=== PATIENT | female | born 1975 | race Hispanic/Latino ===

== ENCOUNTER 2021-01-10 09:51 | Emergency (ER) | payer OTHER, SELFPAY ==
[2021-01-10] MEDS ORDERED: ONDANSETRON 4 MG/2 ML VIAL ONE ×2 (10:43→10:44)
[2021-01-10] MEDS ORDERED: MORPHINE 4 MG/ML SYR ONE ×2 (10:43→11:50)
[2021-01-10] MEDS ORDERED: NA CHLORIDE 0.9% 1,000 ML ONE (10:43)
[2021-01-10 11:05] LABS: Urine Blood 2+ (Negative); Urine Glucose Negative (Negative); Urine Protein 2+ (Negative); Urine Specific Gravity >=1.030 (1.005-1.030)
[2021-01-10 11:15] LABS: Absolute Lymphocytes (CBC) 2.8 K/uL (0.7-4.9); Basophils % 0.5 % (0-1.3); Lymphocytes % 25.3 % (15.3-44.8); MPV 6.8 fL (7.6-11.3); RBC Red Blood Cell Count 4.49 M/uL (3.86-4.86)
[2021-01-10 11:31] LABS: ALT/SGPT 40 U/L (12-78); AST/SGOT 21 U/L (15-37); Alkaline Phosphatase 116 U/L (45-117); BUN Blood Urea Nitrogen 11 mg/dL (7-18); Bicarbonate 24 mmol/L (21-32); Bilirubin Direct < 0.1 mg/dL (0-0.2); Bilirubin Total 0.3 mg/dL (0.2-1.0); Glucose Level 165 mg/dL (74-106); Lipase 79 U/L (73-393); Potassium 3.7 mmol/L (3.5-5.1); Protein, Total 9.2 g/dL (6.4-8.2); Sodium Level 139 mmol/L (136-145)
[2021-01-10] MEDS ORDERED: NA CHLORIDE 0.9% 50 ML ONE (11:50)
[2021-01-10] MEDS ORDERED: CEFTRIAXONE 1000 MG/VIAL ONE (11:50)
--- NOTE | 2021-01-10 11:54 | RAD REPORT ---
EXAM DESCRIPTION: CTAbdomen Pelvis W Contrast - 01/10/2021 11:46 am CLINICAL HISTORY: FLANK PAIN COMPARISON: No comparisons TECHNIQUE: CT of the abdomen and pelvis was performed. All CT scans are performed using dose optimization technique as appropriate and may include automated exposure control or mA/KV adjustment according to patient size. FINDINGS: Lower chest: No acute abnormality. Liver: No acute abnormality or suspicious lesions. Biliary: No biliary ductal dilatation. Stomach: No significant focal abnormality. Duodenum: No significant focal abnormality. Pancreas: No significant abnormality. Spleen: No significant abnormality. Adrenal: No suspicious lesions. Kidney/ureter: Mild right-sided hydroureteronephrosis secondary to a 4 mm stone at the right UVJ. Retroperitoneum: No retroperitoneal adenopathy. Vascular: No aneurysm. Bowel: No significant focal abnormality. Normal appendix. Peritoneum: No ascites or free air. Bladder: Grossly unremarkable. Reproductive: No adnexal masses. Bones: No acute fracture. Pars defects at L5 with grade 2 anterolisthesis of L5 on S1 . Other: n/a IMPRESSION: Mild right hydroureteronephrosis secondary to a 4 millimeters stone at the right UVJ .
[2021-01-10 11:57] LABS: Urine Specific Gravity/Preg >1.030 (1.005-1.030)
[2021-01-10 12:16] LABS: Urine Bacteria 20-50 /HPF (<20)
--- NOTE | 2021-01-10 13:23 | EDPHYS ---
Physician Documentation [facility] Name: Olena Nunes Age: 45 yrs Sex: Female : 1975 Arrival Date: 01/10/2021 Time: 09:52 Bed 8 Private MD: ED Physician Amari Patton HPI: 01/10 10:49 This 45 yrs old Female presents to ER via Wheelchair with complaints of pm1 Abdominal Pain, Back Pain, Vomiting. 10:49 The patient complains of pain in the right low back. The pain radiates to the right pm1 lower quadrant. Onset: The symptoms/episode began/occurred last night. Modifying factors: The symptoms are alleviated by nothing. the symptoms are aggravated by nothing. Associated signs and symptoms: Pertinent positives: dysuria, nausea, vomiting, Pertinent negatives: fever. Severity of pain: in the emergency department the pain is actually worse. The patient has not experienced similar symptoms in the past. The patient has not recently seen a physician. 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 - Social history:: Smoking status: Patient denies any tobacco usage or history of. ROS: 10:49 Constitutional: Negative for fever, chills, and weight loss, Cardiovascular: Negative pm1 for chest pain, palpitations, and edema, Respiratory: Negative for shortness of breath, cough, wheezing, and pleuritic chest pain. 10:49 MS/Extremity: Negative for injury and deformity, Skin: Negative for injury, rash, and discoloration, Neuro: Negative for headache, weakness, numbness, tingling, and seizure. 10:49 Abdomen/GI: Positive for abdominal pain, nausea and vomiting, of the right lower quadrant, Negative for diarrhea, constipation. 10:49 Back: Positive for flank pain, on the right. 10:49 : Positive for burning with urination. 10:49 All other systems are negative. Exam: 10:49 Constitutional: This is a well developed, well nourished patient who is awake, alert, pm1 and in no acute distress. Head/Face: Normocephalic, atraumatic. 10:49 MS/ Extremity: Pulses equal, no cyanosis. Neurovascular intact. Full, normal range of motion. 10:49 Cardiovascular: Exam negative for acute changes, Rate: normal, Rhythm: regular, Pulses: no pulse deficits are appreciated. 10:49 Respiratory: Exam negative for acute changes, respiratory distress, shortness of breath. 10:49 Abdomen/GI: Inspection: obese Palpation: abdomen is soft and non-tender, in all quadrants. 10:49 Back: Exam negative for acute changes, CVA tenderness, that is mild, is noted on the right. 10:49 Neuro: Exam negative for acute changes, Orientation: is normal, Mentation: is normal, Motor: is normal, moves all fours, Sensation: is normal, no obvious gross deficits. Vital Signs: 10:35 BP 119 / 63; Pulse 92; Resp 18; Temp 97.6; Pulse Ox 100% on R/A; iw 11:00 BP 95 / 57; Pulse 82; Resp 15; Pulse Ox 96% ; bp 12:00 BP 122 / 60; Pulse 97; Resp 14; Pulse Ox 94% ; bp 12:10 BP 107 / 65; Pulse 92; Resp 16; Pulse Ox 98% on R/A; bp 14:30 BP 117 / 67; Pulse 87; Resp 17; Temp 97.9; Pulse Ox 98% ; bp MDM: 10:34 Patient medically screened. pm1 13:22 Data reviewed: vital signs. Data interpreted: Pulse oximetry: on room air is 98 %. pm1 Interpretation: normal. Counseling: I had a detailed discussion with the patient and/or guardian regarding: the historical points, exam findings, and any diagnostic results supporting the discharge/admit diagnosis, lab results, radiology results, the need for outpatient follow up, a urologist, to return to the emergency department if symptoms worsen or persist or if there are any questions or concerns that arise at home. 13:31 ED course: PMPaware reviewed. pm1 01/10 10:37 Order name: Basic Metabolic Panel; Complete Time: 11:46 pm1 01/10 10:37 Order name: CBC with Diff; Complete Time: 11:46 pm1 01/10 10:37 Order name: Hepatic Function; Complete Time: 11:46 pm1 01/10 10:37 Order name: Lipase; Complete Time: 11:46 pm1 01/10 11:04 Order name: Urine Dipstick-Ancillary; Complete Time: 11:13 EDMS 01/10 11:14 Order name: Urine Microscopic Only; Complete Time: 13:36 pm1 01/10 10:37 Order name: CT Abd/Pelvis - IV Contrast Only; Complete Time: 11:56 pm1 01/10 11:33 Order name: Urine --Ancillary (enter results) em1 01/10 11:34 Order name: Urine --Ancillary; Complete Time: 12:04 EDMS 01/10 12:19 Order name: Urine Culture EDDC 01/10 10:37 Order name: IV Saline Lock; Complete Time: 10:57 pm1 01/10 10:37 Order name: Labs collected and sent; Complete Time: 10:57 pm1 Administered Medications: 10:57 Drug: NS 0.9% 1000 ml Route: IV; Rate: 1000 ml; Site: right antecubital; bp 14:43 Follow up: IV Status: Completed infusion; IV Intake: 1000ml bp 10:57 Drug: Zofran (Ondansetron) 4 mg Route: IVP; Site: right antecubital; bp 14:42 Follow up: Response: Nausea is decreased bp 10:57 Drug: morphine 4 mg Route: IVP; Site: right antecubital; bp 14:42 Follow up: Response: Pain is decreased bp 11:56 Drug: Rocephin (cefTRIAXone) 1 grams Route: IV; Rate: calculated rate; Site: right bp antecubital; 14:42 Follow up: IV Status: Completed infusion; IV Intake: 100ml bp 11:56 Drug: morphine 4 mg Route: IVP; Site: right antecubital; bp 14:42 Follow up: Response: Pain is decreased bp 13:00 Drug: Ketorolac 30 mg Route: IVP; Site: right antecubital; bp 14:42 Follow up: Response: No adverse reaction; Pain is decreased bp 13:00 Drug: Flomax (tamsulosin) 0.4 mg Route: PO; bp 14:42 Follow up: Response: No adverse reaction bp Disposition: 01/11 09:22 Co-signature as Attending Physician, Amari Patton MD I agree with the assessment and nan plan of care. Disposition Summary: 01/10/21 13:22 Discharge Ordered Location: Home pm1 Problem: new pm1 Symptoms: have improved pm1 Condition: Stable pm1 Diagnosis - Calculus of ureter pm1 Followup: pm1 - With: Emergency Department - When: As needed - Reason: Worsening of condition Followup: pm1 - With: Private Physician - When: 2 - 3 days - Reason: Recheck today's complaints, Continuance of care, Re-evaluation by your physician Discharge Instructions: - Discharge Summary Sheet pm1 - Kidney Stones pm1 - Dietary Guidelines to Help Prevent Kidney Stones pm1 Forms: - Medication Reconciliation Form pm1 - Thank You Letter pm1 - Antibiotic Education pm1 - Prescription Opioid Use pm1 Prescriptions: - Flomax 0.4 mg Oral capsule - take 1 capsule by ORAL route once daily 1/2 hour following the same meal each pm1 day; 10 capsule; Refills: 0, Product Selection Permitted - acetaminophen-codeine 300-15 mg Oral tablet - take 2 tablet by ORAL route every 6 hours As needed as needed; 20 tablet; pm1 Refills: 0, Product Selection Permitted - ondansetron 4 mg Oral tablet,disintegrating - place 1 tablet by TRANSLINGUAL route every 8 hours As needed; 12 tablet; pm1 Refills: 0, Product Selection Permitted - Cipro 500 mg Oral Tablet - take 1 tablet by ORAL route every 12 hours for 10 days; 20 tablet; Refills: 0, pm1 Product Selection Permitted Signatures: Dispatcher [employer] Amari Sears MD MD cha Williams, Irene, RN KARLIE iw Billy Diane, YASH TEXT TRANSCRIBER pm1 Isaias Crooks RN RN bp
--- NOTE | 2021-01-10 13:23 | ER ---
Nurse's Notes [facility] Name: Olena Nunes Age: 45 yrs Sex: Female : 1975 Arrival Date: 01/10/2021 Time: 09:52 Bed 8 Private MD: Diagnosis: Calculus of ureter Presentation: 01/10 10:35 Chief complaint: Patient states: right flank pain and abd pain and vomiting since last iw night, worse this morning , has been taking AZO for possible uti. Coronavirus screen: At this time, the client does not indicate any symptoms associated with coronavirus-19. Ebola Screen: Patient negative for fever greater than or equal to 101.5 degrees Fahrenheit, and additional compatible Ebola Virus Disease symptoms Patient denies exposure to infectious person. Patient denies travel to an Ebola-affected area in the 21 days before illness onset. No symptoms or risks identified at this time. Initial Sepsis Screen: Does the patient meet any 2 criteria? No. Patient's initial sepsis screen is negative. Does the patient have a suspected source of infection? No. Patient's initial sepsis screen is negative. Risk Assessment: Do you want to hurt yourself or someone else? Patient reports no desire to harm self or others. Onset of symptoms was January 10, 2021. 10:35 Method Of Arrival: Wheelchair iw 10:35 Acuity: GERSON 3 iw Triage Assessment: 10:45 General: Appears distressed, uncomfortable, obese, Behavior is cooperative, appropriate bp for age, agitated, anxious. Pain: Complains of pain in right flank. EENT: No deficits noted. Neuro: Level of Consciousness is awake, alert, obeys commands, Oriented to Appropriate for age. Cardiovascular: Rhythm is sinus rhythm. Respiratory: No deficits noted. GI: Reports lower abdominal pain, nausea, vomiting. : Reports pain in right flank(s). Derm: No deficits noted. Musculoskeletal: No deficits noted. 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 - Social history:: Smoking status: Patient denies any tobacco usage or history of. Screenin:00 Abuse screen: Denies threats or abuse. Denies injuries from another. Nutritional bp screening: No deficits noted. Tuberculosis screening: No symptoms or risk factors identified. Fall Risk None identified. Assessment: 10:45 General: SEE TRIAGE NOTE. bp 11:56 Reassessment: PT RETURNED FROM CT. bp 13:30 Reassessment: No changes from previously documented assessment. Patient and/or family bp updated on plan of care and expected duration. Pain level reassessed. 14:43 Reassessment: PT D/C HOME AMBULATORY WITH FAMILY, DX WITH RENAL CALCULOUS. bp Vital Signs: 10:35 BP 119 / 63; Pulse 92; Resp 18; Temp 97.6; Pulse Ox 100% on R/A; iw 11:00 BP 95 / 57; Pulse 82; Resp 15; Pulse Ox 96% ; bp 12:00 BP 122 / 60; Pulse 97; Resp 14; Pulse Ox 94% ; bp 12:10 BP 107 / 65; Pulse 92; Resp 16; Pulse Ox 98% on R/A; bp 14:30 BP 117 / 67; Pulse 87; Resp 17; Temp 97.9; Pulse Ox 98% ; bp ED Course: 09:52 Patient arrived in ED. mr 10:34 Billy Diane, FINAL INSPECTOR BALANCE WHEEL is PHCP. pm1 10:34 Amari Patotn MD is Attending Physician. pm1 10:36 Triage completed. iw 10:39 Isaias Crooks, KARLIE is Primary Nurse. bp 10:55 Inserted saline lock: 18 gauge in right antecubital area, using aseptic technique. bp Blood collected. 11:00 Patient has correct armband on for positive identification. Bed in low position. Call bp light in reach. Side rails up X2. Adult w/ patient. 11:46 CT Abd/Pelvis - IV Contrast Only In Process Unspecified. EDMS 14:30 No provider procedures requiring assistance completed. intact, bleeding controlled, No bp redness/swelling at site. Pressure dressing applied. Administered Medications: 10:57 Drug: NS 0.9% 1000 ml Route: IV; Rate: 1000 ml; Site: right antecubital; bp 14:43 Follow up: IV Status: Completed infusion; IV Intake: 1000ml bp 10:57 Drug: Zofran (Ondansetron) 4 mg Route: IVP; Site: right antecubital; bp 14:42 Follow up: Response: Nausea is decreased bp 10:57 Drug: morphine 4 mg Route: IVP; Site: right antecubital; bp 14:42 Follow up: Response: Pain is decreased bp 11:56 Drug: Rocephin (cefTRIAXone) 1 grams Route: IV; Rate: calculated rate; Site: right bp antecubital; 14:42 Follow up: IV Status: Completed infusion; IV Intake: 100ml bp 11:56 Drug: morphine 4 mg Route: IVP; Site: right antecubital; bp 14:42 Follow up: Response: Pain is decreased bp 13:00 Drug: Ketorolac 30 mg Route: IVP; Site: right antecubital; bp 14:42 Follow up: Response: No adverse reaction; Pain is decreased bp 13:00 Drug: Flomax (tamsulosin) 0.4 mg Route: PO; bp 14:42 Follow up: Response: No adverse reaction bp Intake: 14:42 IV: 100ml; Total: 100ml. bp 14:43 IV: 1000ml; Total: 1100ml. bp Outcome: 13:22 Discharge ordered by MD. pm1 14:30 Discharged to home ambulatory, with family. bp 14:30 Condition: stable 14:30 Discharge instructions given to patient, family, Instructed on discharge instructions, follow up and referral plans. medication usage, Demonstrated understanding of instructions, follow-up care, medications, Prescriptions given X 4. 14:45 Patient left the ED. bp Signatures: Dispatcher [employer] ANTHONYTN Rhina Fraire Nelli Inman RN RN iw Billy Diane, YASH FINAL INSPECTOR BALANCE WHEEL pm1 Isaias Crooks RN RN bp Corrections: (The following items were deleted from the chart) 10:37 10:35 Pulse 92bpm; Resp 18bpm; Pulse Ox 100% RA; Temp 97.6F; iw iw 11:24 11:21 Patient has correct armband on for positive identification. Bed in low position. bp Call light in reach. Side rails up X2. Adult w/ patient. bp
[2021-01-10] MEDS ORDERED: TAMSULOSIN 0.4 MG SR CAP ONE (14:31)
[2021-01-10] MEDS ORDERED: KETOROLAC 30 MG/ML INJ ONE (14:31)
[2021-01-10 14:58] VITALS: O2SAT 98
[2021-01-10 15:00] VITALS: BP 117/67; TEMP 97.9
== END 2021-01-10 14:45 | disposition home or self-care (01) ==
LOC: ER 09:51
DX: N20.1 Calculus of ureter (principal)
CPT/HCPCS: 36415; 74177; 80048; 80076; 81003; 81015; 81025; 83690; 85025; 87086; 87088; 96361; 96365; 96366; 96375; 99284; J2405; J7030; Q9967

== ENCOUNTER 2022-10-11 00:29 | Inpatient (IN) | payer SELFPAY ==
--- OUTSIDE RECORDS SUMMARY | 2022-10-11 00:32 | XMS REPORT | Continuity of Care Document ---
:1975 Author Organization [facility] t Address [address] [place] [id number] Care Team Providers Name Role Phone Pcp, Patient Does Not Have A Primary Care Physician [id number] Nnamdi Whiting MD Attending Clinician NNAMDI WHITING Attending Clinician Unavailable Problems Condition Condition Condition Status Onset Resolution Last Treating Co mments Source Name Details Category Date Date Treatment Clinician Date General General Disease Recurre 2013-02 Overview: Uni vers counseling counseling nce 2-14 Formattin ity of and advice and advice 00:00: g of this [place] for for note Medical contracept contracept might be Branch leah leah different management management from the original. ICD10 Diagnosis Term Filler Wiper Utility Obesity Obesity Disease Active 2013-02 Overview: Univ ers 2-14 Formattin ity of 00:00: g of this note Medical might be Branch different from the original. ICD10 Diagnosis Term Filler Wiper Utility Anemia Anemia Disease Active 2013-02 Overview: Univer s 2-14 Formattin ity of 00:00: g of this note Medical might be Branch different from the original. ICD10 Diagnosis Term Filler Wiper Utility Multiparit Multiparit Disease Active 2013-02 U nivers y y 0-15 ity of 00:00: [place] 00 Medical Branch Allergies, Adverse Reactions, Alerts Allergy Allergy Status Severity Reaction(s) Onset Inactive Treating Comm ents Source Name Type Date Date Clinician NO KNOWN Drug Active Univers ALLERGIE Class ity of S [place] [facility] [place] Social History Social Habit Start Date Stop Date Quantity Comments Source Gender identity Universit y [place] [facility] Sexual orientation Univer sity of [facility] Alcohol intake 2022-10-10 2022-10-10 Current University of 00:00:00 00:00:00 non-drinker of [facility] alcohol [place] (finding) History of Social 2022-10-10 2022-10-10 Univers ity of function 00:00:00 00:00:00 [facility] Tobacco use and 2013-01-04 2013-01-04 Smokeless Universit y of exposure 00:00:00 00:00:00 tobacco non-user [facility] dical [place] Sex Ass[birth year] Universit y of 00:00:00 00:00:00 [facility] Smoking Status Start Date Stop Date Source Never smoked tobacco [facility] Medications Ordered Filled Start Stop Current Ordering Indication Dosage Frequency Signature Comments Components Source Medication Medication Date Date Medication? Clinician (SIG) Name Name cefTRIAXone 2022- No 1000mg 1,000 mg, Univers (ROCEPHIN) 10-10 IV ity of 1,000 mg in 06:30: 06:33 Piggyback, [place] NaCl 0.9% 00 :00 ONCE, 1 Medical (NS) 100 mL dose, On [facility] ch MINI-BAG [place] 10/10/22 at 0130, Administer over 30 Minutes, 100 mL
Reas on for Anti-Infec tive: Documented Infection< br>Documen jewell Infection Site: Urine<br&g t;Duration of Therapy: Other (see Comments) iopamidol 2022- No [id number] 100mL 100 mL, Univers (ISOVUE 10-10 Intravenou ity o f 370-500 mL) 06:15: 06:15 s, ONCE, 1 [place] injection 00 :00 dose, On Medica l 100 mL [facility] 10/10/22 at 0115, Routine ketorolac 2022- No 30mg 30 mg, Unive rs (TORADOL) 10-10 Slow IV ity of injection 06:15: 05:12 Push, [place] 30 mg 00 :00 ONCE, 1 Medical dose, On Branch [place] 10/10/22 at 0115, Routine NaCl 0.9% 2023-0 2023- No 1000mL at 999 Uni vers (NS) IV 10-10 mL/hr, ity of infusion 06:00: 06:33 Intravenou [place] 1,000 mL 00 :00 s, ONCE, 1 Medic al dose, On [facility] 10/10/22 at 0100, Routine metoclopram 2022- No 10mg 10 mg, Uni vers debra HCl 10-10 Slow IV ity of (REGLAN) 05:15: 05:12 Push, [place] injection 00 :00 ONCE, 1 Medical 10 mg dose, On [facility] 10/10/22 at 0015, EMY acetaminoph 2022- No 1000mg 1,000 mg, Univers en 10-10 Oral, ity of (TYLENOL) 04:30: 04:43 ONCE, 1 [place] tablet 00 :00 dose, On Medical 1,000 mg Sat [place] 10/09/22 at 2330, EMY cefdinir 0 Yes [id number] 300mg Take 1 U nivers 300 mg - capsule by ity of capsule 00:00: mouth [place] 00 every 12 Medical (twelve) Branch hours. ibuprofen 0 Yes [id number] 800mg Take 1 Univers 800 mg 8-27 tablet by ity of tablet 00:00: mouth [place] 00 every 8 Medical (eight) Branch hours as needed for Temp > 38.5 C or Pain (scale 4-6). ondansetron Yes [id number] 4mg Take 1 Univers (ZOFRAN) 4 - tablet by ity of mg tablet 00:00: mouth [place] 00 every 8 Medical (eight) Branch hours as needed for Nausea and Vomiting (N/V). Condoms Yes [id number] Use as Uni vers Latex 10-15 directed ity of Lubricated 00:00: [place] (KIMONO 00 Medical TEXTURED Branch CONDOMS) Catherine Immunizations Ordered Filled Immunization Date Status Comments Sourc e Immunization Name Name TDAP 2013-10-17 Completed University 00:00:00 [facility] TD, NOS 2006-02-14 Completed [facility] 00:00:00 [facility] Rubella 2002-10-25 Completed [facility] 00:00:00 [facility] Vital Signs Vital Name Observation Time Observation Value Comments Source Systolic blood 2022-10-10 06:32:00 111 mm[Hg] Univer sity of pressure [facility] Diastolic blood 2022-10-10 06:32:00 60 mm[Hg] Unive rsity of pressure [facility] Heart rate 2022-10-10 06:32:00 110 /min [facility] Respiratory rate 2022-10-10 06:32:00 18 /min [facility] Oxygen saturation in 2022-10-10 06:32:00 96 /min [facility] Arterial blood by [facility] Pulse oximetry Branch Body temperature 2022-10-10 06:10:00 37.61 Liat [facility] Body height 2022-10-10 04:11:00 162.6 cm [facility] Body weight 2022-10-10 04:11:00 99.791 kg [facility] BMI 2022-10-10 04:11:00 37.76 kg/m2 [facility] Procedures Procedure Date / Time Performed Performing Clinician [facility] e CT ABDOMEN PELVIS W 2022-10-10 05:25:12 Nnamdi Whiting [facility] CONTRAST [facility] Branch COVID-19 (ID NOW RAPID 2022-10-10 05:09:00 Nnamdi Whiting [facility] TESTING) [facility] NOTICE OF PRIVACY 2022-10-10 04:37:50 Doctor Unassigned, No [facility] PRACTICES Name [facility] CONSENT/REFUSAL FOR 2022-10-10 04:37:27 Doctor Unassigned, No [facility] DIAGNOSIS AND Name [facility] TREATMENT AMYLASE 2022-10-10 04:26:00 Nnamdi Whiting [facility] LIPASE 2022-10-10 04:26:00 Nnamdi Whiting [facility] COMP. METABOLIC PANEL 2022-10-10 04:26:00 Nnamdi Whiting [facility] ([id number]) [facility] CBC WITH DIFF 2022-10-10 04:26:00 Nnamdi Whiting [facility] URINALYSIS 2022-10-10 04:26:00 Nnamdi Whiting [facility] Encounters Start End Encounter Admission Attending Care Care Encounter Source Date/Time Date/Time Type Type Clinicians Facility Department ID 2022-10-09 2022-10-10 Emergency [facility] [id number] Univers 23:15:00 01:45:00 Nnamdi SIMMONS [id number] ity ariana KENT [id number] [facility] [id number] [place] [id number] Branch 2022-10-09 2022-10-10 Emergency X [facility] ERT [id number] Univers 23:15:00 01:45:00 [facility] 2022-09-27 Outpatient SFA SFA [id number] 023 Jose R 13:29:48 13:29:48 0814 [facility] 2022-06-29 2022-06-29 Outpatient SFA SFA [id number] 023 Jose R 08:31:14 08:31:14 0516 [facility] 2022-06-24 2022-06-24 Outpatient SFA SFA [id number] [id number] Jose R 15:09:27 15:09:27 0511 [facility] 2022-06-23 2022-06-23 Outpatient SFA SFA [id number] 023 Jose R 15:04:15 15:04:15 0510 [facility] 2022-03-24 2022-03-24 Outpatient SFA SFA [id number] 023 Jose R 15:29:17 15:29:17 0208 [facility] Results Test Description Test Time Test Comments Results Result Comments Source TSH, THIRD GENERATION 2022-09-28 04:32:11 Test Item Value Reference Range Interpretation Comme nts TSH, THIRD GENERATION (test 2.770 UIU/ML 0.400-4.100 UNLESS OTHERWISE INDICATED, code = 2821) ALL TESTING PER FORMED AT CLINICAL PATHOL [employer], [place] [id number]: Vladimir CARRANZA [id number] [facility] [place] [id number] HEMOGLOBIN [id number] 03:42:19 Test Item Value Reference Range Interpretation Comments HEMOGLOBIN A1c (test 6.9 % 4.2-5.6 H AMERIC AN DIABETES code = 61808) ASSOCIATION IDELINES FOR HGB A1C: PREDIABETES/INC REASED RISK . . . . . . . 5.7 -6.4% DIAGNOSIS OF DI ABETES . . . . . . . . . >=6 .5% WITH CONFIRMATION OR APPROPRIATE SYMPTOMS NOTE: ASSAY MAY BE AFFECTED BY HEMOGLOBINOPATH IES (SICKLE CELL ANEMIA, S- C DISEASE, OTHERS) OR JAXSON FICIALLY LOWERED BY DECR EASED RED CELL SURVIVAL ( HEMOLYTIC ANEMIAS, BLOOD LOSS, ETC.). CONSIDER ALTERN ATE TESTING OR LABORATORY C ONSULTATION. CBC W/AUTO DIFF WITH [id number] 03:31:23 Test Item Value Reference Range Interpretation Comments WBC (test code = 7.8 K/UL 3.5-11.0 1001) RBC (test code = 4.56 M/UL 3.80-5.40 1002) HEMOGLOBIN (test code 11.5 G/DL 11.5-15.5 = 1003) HEMATOCRIT (test code 36.0 % 34.0-45.0 = 1004) MCV (test code = 78.9 fL 80.0-99.0 L 1005) MCH (test code = 25.2 PG 25.0-33.0 1006) MCHC (test code = 31.9 G/DL 31.0-36.0 1007) RDW (test code = 16.8 % 11.5-15.0 H 1038) NEUTROPHILS (test 52.9 % code = 1008) LYMPHOCYTES (test 35.9 % code = 1010) MONOCYTES (test code 6.6 % = 1011) EOSINOPHILS (test 3.9 % code = 1012) BASOPHILS (test code 0.4 % = 1013) IMMATURE GRANULOCYTES 0.3 % (test code = 1036) NUCLEATED RBCS (test 0.0 /100 WBC'S See_Comment [Aut omated code = 1065) message] The sy stem which generated this result transmitted reference range : 0.0. The refere nce range was not u sed to interpret th is result as normal/abnormal . PLATELET COUNT (test 400 K/UL 130-400 code = 1015) ABSOLUTE NEUTROPHILS 4.11 K/UL 1.50-7.50 (test code = 1066) ABSOLUTE LYMPHOCYTES 2.78 K/UL 1.00-4.00 (test code = 1067) ABSOLUTE MONOCYTES 0.51 K/UL 0.20-1.00 (test code = 1068) ABSOLUTE EOSINOPHILS 0.30 K/UL 0.00-0.50 (test code = 1040) ABSOLUTE BASOPHILS 0.03 K/UL 0.00-0.20 (test code = 1069) ABS IMMATURE 0.02 K/UL 0.00-0.10 GRANULOCYTES (test code = 1020) ABS NUCLEATED RBCS 0.00 K/UL 0.00-0.11 (test code = 87948) COMPREHENSIVE METABOLIC [id number] 02:16:54 Test Item Value Reference Range Interpretation Comments GLUCOSE (test code = 127 MG/DL 70-99 H 2216) BUN (test code = 10 MG/DL 6-20 2207) CREATININE (test 0.45 MG/DL 0.60-1.30 L code = 2213) eGFR (2020 CKD-EPI) 119 >60 (test code = 26670) ML/MIN/1.73 CALC BUN/CREAT (test 22 RATIO 6-28 code = 2235) SODIUM (test code = 136 MEQ/L 049-100 6534) POTASSIUM (test code 4.0 MEQ/L 3.5-5.4 = 2227) CHLORIDE (test code 103 MEQ/L 95-107 = 2214) CARBON DIOXIDE (test 26 MEQ/L 19-31 code = 220) CALCIUM (test code = 9.1 MG/DL 8.5-10.5 2208) PROTEIN, TOTAL (test 8.1 G/DL 6.1-8.3 code = 222) ALBUMIN (test code = 3.9 G/DL 3.5-5.2 2200) CALC GLOBULIN (test 4.2 G/DL 1.9-3.7 H code = 2240) CALC A/G RATIO (test 0.9 RATIO 1.0-2.6 L code = 2234) BILIRUBIN, TOTAL 0.2 MG/DL See_Comment [Automated message] (test code = 2206) The syste m which generated this result transmit jewell reference range : <=1.2. The refe rence range was not u sed to interpret th is result as normal/abnormal . ALKALINE PHOSPHATASE 118 U/L 40-120 (test code = 2204) AST (test code = 25 U/L 9-40 2217) ALT (test code = 47 U/L 5-40 H 2218) LIPID [id number] 02:16:54 Test Item Value Reference Range Interpretation Comments CHOLESTEROL (test 160 MG/DL <200 code = 2210) TRIGLYCERIDES (test 125 MG/DL <150 code = 2232) HDL CHOLESTEROL (test 57 MG/DL >39 code = 2220) CALC LDL CHOL (test 80 MG/DL <100 NOTE: C ALCULATED LDL code = 2237) IS BASED ON ALEX-CASTILLO METHOD WHICHINCLUDES ADJUSTABLE TRIGLYCERIDE:VL DL CHOLESTEROL RAT IO.THIS FACTOR VARIES B Y MEASURED TRIGLY CERIDE AND NON-HDLCHOL ESTEROL CONCENTRATIONS WITH INCREASED CALCU LATED LDL SEENIN HIGH ER TRIGLYCERIDE OR LOWER NON-HDL SPECIME NS. FOR MOREINFORMATION , SEE CLIENT ANNOUNCE MENT AT [email or web address] RISK RATIO LDL/HDL 1.40 RATIO <3.22 (test code = 2238) Notes Date/Time Note Provider Source 2022-10-10 Formatting of this note might be differe nt from the original. Fredy Dennis RN [facility] 01:36:30-00:00 Pt discharged home following ERP eval. Given all education and information regarding prescriptions; pain management; and follow up importance. Pt and daughter verbalize understanding. Vss. Alert and ambulatory to pov with daughter, Electronically signed by Fredy Dennis, RN at 0 10/10/2022 1:37 AM CDT 2022-10-09 Formatting of this note might be differe nt from the original. Dhara Dykes RN [facility] 23:08:55-00:00 CC: right upper quadrant rib pain that is severe, fever all day, N/V. She states she also just saw a spot behind her left knee that looks like a boil. Tylenol and motrin today PMHx: none PSH: c-sec MEDS:none LMP: now Awake, alert, oriented, resp reg unlabored, skin warm and dry, color appropriate for race, moves all ext without difficulty, amb with no assist Appears in moderate distress
[2022-10-11 01:39] LABS: Absolute Lymphocytes (CBC) 2.7 K/uL (0.7-4.9); Hematocrit 33.3 % (36.0-45.0); Lymphocytes % 18.6 % (15.3-44.8); MCV 78.5 fL (80-100); MPV 6.8 fL (7.6-11.3); Platelets 324 thou/uL (152-406); RBC Red Blood Cell Count 4.24 M/uL (3.86-4.86)
[2022-10-11 01:44] LABS: Protime INR 1.15
[2022-10-11 01:51] LABS: Albumin 2.7 g/dL (3.4-5.0); Bilirubin Total 0.3 mg/dL (0.2-1.0); Potassium 3.5 mEq/L (3.5-5.1); Protein, Total 8.3 g/dL (6.4-8.2)
--- NOTE | 2022-10-11 02:07 | ER ---
Nurse's Notes [facility] Name: Olena Nunes Age: 46 yrs Sex: Female : 1975 Arrival Date: 10/11/2022 Time: 00:29 Bed 14 Private MD: Diagnosis: Cellulitis and acute lymphangitis of other parts of limb;Sepsis, unspecified organism Presentation: 10/11 00:35 Chief complaint: Patient states: she is having right leg pain from her groin area down ap3 to her foot. patient states the pain gets worse each day. Coronavirus screen: At this time, the client does not indicate any symptoms associated with coronavirus-19. Ebola Screen: No symptoms or risks identified at this time. Initial Sepsis Screen:. Initial Sepsis Screen: Does the patient meet any 2 criteria? No. Patient's initial sepsis screen is negative. Does the patient have a suspected source of infection? Yes: Skin breakdown/wound Acute abdominal pain. Risk Assessment: Do you want to hurt yourself or someone else?. Onset of symptoms is unknown. 00:35 Method Of Arrival: Ambulatory ap3 00:35 Acuity: GERSON 3 ap3 Triage Assessment: 00:38 General: Appears uncomfortable, Behavior is calm, cooperative, appropriate for age. ap3 Pain: Complains of pain in abdomen and right leg. Neuro: Level of Consciousness is awake, alert, obeys commands, Oriented to person, place, time, situation. Cardiovascular: Patient's skin is warm and dry. Respiratory: Airway is patent Respiratory effort is even, unlabored, Respiratory pattern is regular, symmetrical. Derm: redness noted on the right lower extremity. Historical: - Allergies: 00:38 No Known Allergies; ap3 - Home Meds: 00:38 None [Active]; ap3 - PMHx: 02:11 Kidney stone; snw - Immunization history:: Client reports receiving the 2nd dose of the Covid vaccine. - Social history:: Smoking status: Patient denies any tobacco usage or history of. Screenin:39 [facility] ED Fall Risk Assessment (Adult) History of falling in the last 3 months, ap3 including since admission No falls in past 3 months (0 pts). Abuse screen: Denies threats or abuse. Nutritional screening: No deficits noted. Tuberculosis screening: No symptoms or risk factors identified. Assessment: 00:39 General: Appears uncomfortable, Behavior is calm, cooperative. Pain: Complains of pain ha1 in right leg Pain does not radiate. Pain currently is 8 out of 10 on a pain scale. Quality of pain is described as burning, Aggravated by increased activity. Neuro: Level of Consciousness is awake, alert, obeys commands, Oriented to person, place, time, situation. Cardiovascular: Patient's skin is warm and dry. Rhythm is sinus tachycardia. Respiratory: Airway is patent Respiratory effort is even, unlabored, Respiratory pattern is regular, symmetrical. GI: No signs and/or symptoms were reported involving the gastrointestinal system. Abdomen is round non-distended. Derm: Rash noted that is red, on right hip and lateral aspect of right calf Reports burning, pain that is 8 out of 10 on a pain scale. Musculoskeletal: Circulation, motion, and sensation intact. Range of motion: intact in all extremities. 01:30 Reassessment: Patient and/or family updated on plan of care and expected duration. Pain ha1 level reassessed. Patient is alert, oriented x 3, equal unlabored respirations, skin warm/dry/pink. 03:16 Reassessment: No changes from previously documented assessment. Patient and/or family vc1 updated on plan of care and expected duration. Pain level reassessed. Patient is alert, oriented x 3, equal unlabored respirations, skin warm/dry/pink. Vital Signs: 00:35 BP 125 / 62; Pulse 109; Resp 18; Temp 98.9; Pulse Ox 100% ; ap3 01:10 BP 136 / 76; Pulse 108; Resp 22 S; Pulse Ox 100% on R/A; ha1 02:00 BP 126 / 75; Pulse 106; Resp 20 S; Pulse Ox 99% on R/A; ha1 03:15 BP 116 / 60; Pulse 102; Resp 24; Pulse Ox 100% ; vc1 ED Course: 00:32 Patient arrived in ED. ag3 00:32 Mar Padgett FNP-C is PHCP. snw 00:32 Santosh Ivy DO is Attending Physician. snw 00:38 Triage completed. ap3 00:39 Arm band placed on right wrist. ap3 00:39 Patient has correct armband on for positive identification. Bed in low position. Call ha1 light in reach. Side rails up X 1. 01:02 Inserted saline lock: 20 gauge in left antecubital area, using aseptic technique. Blood rv1 collected. 01:03 Strep Sent. rv1 01:03 Blood Culture Adult (2) Sent. rv1 01:03 CBC with Diff Sent. rv1 01:03 CMP Sent. rv1 01:03 Lactate w/ 2H reflex if indic. Sent. rv1 01:03 Protime (+inr) Sent. rv1 01:03 Ptt, Activated Sent. rv1 01:22 US Extremity Venous Unilateral Ltd In Process Unspecified. EDMS 01:50 Marti Hutton, KARLIE is Primary Nurse. ha1 02:05 Stephani Hinds MD is Hospitalizing Provider. snw 02:05 Report given to KARLIE Lewis. ha1 02:41 Inserted saline lock: in right antecubital area, using aseptic technique. vc1 03:16 No provider procedures requiring assistance completed. Patient admitted, IV remains in vc1 place. Administered Medications: 02:20 Drug: NS 0.9% IV 250 ml, vancoMYCIN IVPB 1.5 grams 1.5 grams Route: IVPB; Rate: vc1 calculated rate; Site: left antecubital; 02:20 Drug: NS 0.9% IV 1000 ml Route: IV; Rate: 1 bolus; Site: left antecubital; vc1 02:20 Drug: Decadron - Dexamethasone IVP 10 mg Route: IVP; Site: left antecubital; vc1 02:41 Drug: Cefepime IVPB 1 grams Route: IVPB; Rate: 200 ml/hr; Infused Over: 30 mins; Site: vc1 right antecubital; 03:40 Drug: NS 0.9% IV 1000 ml Route: IV; Rate: 1 bolus; Site: right antecubital; vc1 Medication: 03:17 VIS not applicable for this client. vc1 Outcome: 02:06 Decision to Hospitalize by Provider. snw 03:17 Condition: good vc1 03:17 Instructed on the need for admit. 03:42 Patient left the ED. vc1 Signatures: Dispatcher [employer] EDMS Mar Padgett, MARIO ALBERTO-C CUSTODIAL SUPERVISOR-Csnw Yelena Fortune RN RN ap3 Joceline [place] 3 Debbie Xiong RN RN vc1 Marti Hutton RN RN ha1 Natali Mcmullen rv1 Corrections: (The following items were deleted from the chart) 02: 00:38 PMHx: None; ap3 snw 02:12 02:10 PSHx: section; snw snw
--- NOTE | 2022-10-11 02:07 | EDPHYS ---
Physician Documentation [facility] Name: Olena Nunes Age: 46 yrs Sex: Female : 1975 Arrival Date: 10/11/2022 Time: 00:29 Bed 14 Private MD: ED Physician Santosh Ivy HPI: 10/11 00:52 This 46 yrs old Female presents to ER via Ambulatory with complaints of Leg snw Pain. 00:52 The patient presents with pain, that is acute, a rash, erythematous, tenderness. The snw complaints affect the medial aspect of right calf. Associated signs and symptoms: Pertinent positives: fever, weakness. Severity of symptoms: At their worst the symptoms were moderate, severe. The patient has been recently seen by a physician: [facility] ED yesterday, CT abd/pelvis negative per patient. Historical: - Allergies: 00:38 No Known Allergies; ap3 - Home Meds: 00:38 None [Active]; ap3 - PMHx: 02:11 Kidney stone; snw - Immunization history:: Client reports receiving the 2nd dose of the Covid vaccine. - Social history:: Smoking status: Patient denies any tobacco usage or history of. ROS: 00:51 Eyes: Negative for injury, pain, redness, and discharge, ENT: Negative for injury, snw pain, and discharge, Neck: Negative for injury, pain, and swelling, Cardiovascular: Negative for chest pain, palpitations, and edema, Respiratory: Negative for shortness of breath, cough, wheezing, and pleuritic chest pain. 00:51 Back: Negative for injury and pain, : Negative for injury, bleeding, discharge, and swelling. 00:51 Skin: Negative for injury, rash, and discoloration, Neuro: Negative for headache, weakness, numbness, tingling, and seizure, Psych: Negative for depression, anxiety, suicide ideation, homicidal ideation, and hallucinations. 00:51 Constitutional: Positive for body aches, fever, malaise. 00:51 Abdomen/GI: Positive for abdominal pain, of the right upper quadrant. 00:51 MS/extremity: Positive for pain, tenderness, of the right leg. Exam: 00:49 Constitutional: This is a well developed, well nourished patient who is awake, alert, snw and in no acute distress. Head/Face: Normocephalic, atraumatic. Eyes: Pupils equal round and reactive to light, extra-ocular motions intact. Lids and lashes normal. Conjunctiva and sclera are non-icteric and not injected. Cornea within normal limits. Periorbital areas with no swelling, redness, or edema. ENT: Nares patent. No nasal discharge, no septal abnormalities noted. Tympanic membranes are normal and external auditory canals are clear. Oropharynx with no redness, swelling, or masses, exudates, or evidence of obstruction, uvula midline. Mucous membranes moist. Neck: Trachea midline, no thyromegaly or masses palpated, and no cervical lymphadenopathy. Supple, full range of motion without nuchal rigidity, or vertebral point tenderness. No Meningismus. Chest/axilla: Normal chest wall appearance and motion. Nontender with no deformity. No lesions are appreciated. Cardiovascular: Regular rate and rhythm with a normal S1 and S2. No gallops, murmurs, or rubs. Normal PMI, no JVD. No pulse deficits. Respiratory: Lungs have equal breath sounds bilaterally, clear to auscultation and percussion. No rales, rhonchi or wheezes noted. No increased work of breathing, no retractions or nasal flaring. Abdomen/GI: Soft, non-tender, with normal bowel sounds. No distension or tympany. No guarding or rebound. No evidence of tenderness throughout. Back: No spinal tenderness. No costovertebral tenderness. Full range of motion. Neuro: Awake and alert, GCS 15, oriented to person, place, time, and situation. Cranial nerves II-XII grossly intact. Motor strength 5/5 in all extremities. Sensory grossly intact. Cerebellar exam normal. Normal gait. Psych: Awake, alert, with orientation to person, place and time. Behavior, mood, and affect are within normal limits. 00:49 Skin: Appearance: normal except for affected area, cellulitis, that is moderate, well demarcated, on the medial aspect of right calf, tender lymph nodes behind the knee and the right groin. Vital Signs: 00:35 BP 125 / 62; Pulse 109; Resp 18; Temp 98.9; Pulse Ox 100% ; ap3 01:10 BP 136 / 76; Pulse 108; Resp 22 S; Pulse Ox 100% on R/A; ha1 02:00 BP 126 / 75; Pulse 106; Resp 20 S; Pulse Ox 99% on R/A; ha1 03:15 BP 116 / 60; Pulse 102; Resp 24; Pulse Ox 100% ; vc1 MDM: 00:38 Patient medically screened. snw 00:53 Differential diagnosis: rheumatic fever, cellulitis, nec fasc, DVT. Data reviewed: snw vital signs, nurses notes, lab test result(s), radiologic studies. Counseling: I had a detailed discussion with the patient and/or guardian regarding the historical points, exam findings, and any diagnostic results supporting the discharge/admit diagnosis, lab results, radiology results. 01:27 ED course: negative for DVT. snw 02:06 Management of patient was discussed with the following: Hospitalist: Shy Tee. snw Dr. Ivy. I considered the following discharge prescriptions or medication management in the emergency department Medications were administered in the Emergency Department. See APR. 02:09 ED course: will give 2L NS per ideal birthweight. snw 10/11 00:39 Order name: Blood Culture Adult (2) snw 10/11 00:39 Order name: CBC with Diff; Complete Time: 01:47 snw 10/11 00:39 Order name: CMP; Complete Time: 02:33 snw 10/11 00:39 Order name: Lactate w/ 2H reflex if indic.; Complete Time: 01:52 snw 10/11 00:39 Order name: Protime (+inr); Complete Time: 01:47 snw 10/11 00:39 Order name: Ptt, Activated; Complete Time: 01:47 snw 10/11 00:39 Order name: Strep; Complete Time: 01:47 snw 10/11 01:44 Order name: Glucose, Ancillary Testing; Complete Time: 01:47 EDMS 10/11 01:48 Order name: Throat Culture EDMS 10/11 01:57 Order name: Add On-Lab snw 10/11 02:16 Order name: Creatine Phosphokinase; Complete Time: 02:33 EDMS 10/11 02:39 Order name: Basic Metabolic Panel EDMS 10/11 02:39 Order name: Basic Metabolic Panel EDMS 10/11 02:39 Order name: CBC with Automated Diff EDMS 10/11 02:39 Order name: CBC with Automated Diff EDMS 10/11 02:39 Order name: Magnesium EDND 10/11 02:39 Order name: Magnesium EDND 10/11 00:39 Order name: US Extremity Venous Unilateral Ltd snw 10/11 00:39 Order name: EKG; Complete Time: 00:40 snw 10/11 02:23 Order name: CONS Physician Consult EDND 10/11 02:38 Order name: Heart Healthy EDND 10/11 00:39 Order name: Accucheck; Complete Time: 01:34 snw 10/11 00:39 Order name: Cardiac monitoring; Complete Time: 01: snw 10/11 00:39 Order name: EKG - Nurse/Tech; Complete Time: 01: snw 10/11 00:39 Order name: IV Saline Lock - Large Bore; Complete Time: 01:03 snw 10/11 00:39 Order name: Labs collected and sent; Complete Time: 01:03 snw 10/11 00:39 Order name: O2 Per Protocol; Complete Time: 00:42 snw 10/11 00:39 Order name: O2 Sat Monitoring; Complete Time: 00:42 snw 10/11 00:39 Order name: Vital Signs; Complete Time: 00:42 snw EC:30 Rate is 109 beats/min. Rhythm is regular. QRS [place] is Normal. [place] interval is normal. snw QRS interval is normal. Clinical impression: Sinus tachycardia. Administered Medications: 02:20 Drug: NS 0.9% IV 250 ml, vancoMYCIN IVPB 1.5 grams 1.5 grams Route: IVPB; Rate: vc1 calculated rate; Site: left antecubital; 02:20 Drug: NS 0.9% IV 1000 ml Route: IV; Rate: 1 bolus; Site: left antecubital; vc1 02:20 Drug: Decadron - Dexamethasone IVP 10 mg Route: IVP; Site: left antecubital; vc1 02:41 Drug: Cefepime IVPB 1 grams Route: IVPB; Rate: 200 ml/hr; Infused Over: 30 mins; Site: vc1 right antecubital; 03:40 Drug: NS 0.9% IV 1000 ml Route: IV; Rate: 1 bolus; Site: right antecubital; vc1 Disposition: 01:30 Co-signature as Attending Physician, Santosh CAI was immediately available on-site ms3 in the Emergency Department for consultation in the care of the patient. Disposition Summary: 10/11/22 02:06 Hospitalization Ordered Hospitalization Status: Inpatient Admission snw Provider: Stephani Hinds Location: Telemetry/MedSurg (Inpatient) snw Condition: Stable snw Problem: new snw Symptoms: are unchanged snw Bed/Room Type: Standard snw Room Assignment: 209(10/11/22 02:26) mw Diagnosis - Cellulitis and acute lymphangitis of other parts of limb snw - Sepsis, unspecified organism snw Forms: - Medication Reconciliation Form snw - SBAR form snw - Leadership Thank You Letter snw Signatures: Dispatcher [employer] EDMS Roxana Lopez RN RN mw Mar Padgett, DIRECTOR OF MATERNITY SERVICES-C DIRECTOR OF MATERNITY SERVICES-Csnw Yelena Fortune RN RN ap3 Santosh Ivy DO DO ms3 Debbie Xiong RN RN vc1 Corrections: (The following items were deleted from the chart) 02:12 00:38 PMHx: None; ap3 snw 02:12 02:10 PSHx: section; snw snw 02:26 02:06 snw mw
--- NOTE | 2022-10-11 02:23 | P.HP ---
Certification for Inpatient Patient admitted to: Inpatient With expected LOS: <2 Midnights Patient will require the following post-hospital care: None Practitioner: I am a practitioner with admitting privileges, knowledge of patient current condition, hospital course, and medical plan of care. Services: Services provided to patient in accordance with Admission requirements found in Title 42 Section 412.3 of the Code of Federal Regulations Patient History Date of Service: 10/11/22 History of Present Illness: 46-year-old female with no prior past medical history presents to the emergency room with right lower extremity pain. She reports redness, tenderness, fever and weakness started 2 days ago., She reports right groin tenderness, right francisco tenderness with a blood spot over her francisco. She said pain worse over the last 24 hours.. She denies injury to the right lower extremity she denies history of DVT, she reports being seen at [facility] in the emergency room yesterday CT of the abdomen pelvis was negative. Plan to admit for cellulitis of the right lower extremity, sepsis, lymphangitis. ER evaluation BP 125 / 62; Pulse 109; Resp 18; Temp 98.9; Pulse Ox 100% ; EKG 0 Rate is 109 beats/min. Rhythm is regular. QRS [place] is Normal. [place] interval is normal. QRS interval is normal. Clinical impression: Sinus tachycardia. Sepsis bolus given in the emergency room with vancomycin and cefepime, Laboratory evaluation WBCs elevated at 14.40, microcytic anemia at 10.8, 33.3, early left shift, blood sugar 125, mild hyponatremia at 134, potassium is normal, lactic is normal, Allergies NKDA Allergy (Uncoded 07/17/13 05:46) Unknown - Past Medical/Surgical History Past Medical History: Patient denies medical history -: - Social History Alcohol use: Yes Review of Systems 10-point ROS is otherwise unremarkable Physical Examination - Physical Exam General: Alert, In no apparent distress, Oriented x3 HEENT: Atraumatic, Normocephalic, PERRLA Neck: Supple, 2+ carotid pulse no bruit, JVD not distended Respiratory: Clear to auscultation bilaterally, Normal air movement Cardiovascular: No edema, Normal pulses, Regular rate/rhythm Capillary refill: <2 Seconds Gastrointestinal: Normal bowel sounds, Soft and benign Musculoskeletal: No clubbing, No swelling, Other (Right lower extremity edema with erythema,) Integumentary: Other (Right francisco tenderness with erythema) Neurological: Normal speech, Normal strength at 5/5 x4 extr, Sensation intact, Cranial nerves 3-12 intact Lymphatics: Other (Right groin tenderness) - Studies Laboratory Data (last 24 hrs) 10/11/22 10/11/22 10/11/22 00:57 00:57 00:57 WBC 14.40 H Hgb 10.8 L Hct 33.3 L Plt Count 324 PT 12.7 H INR 1.15 APTT 30.7 Sodium 134 L Potassium 3.5 BUN 10 Creatinine 0.62 Glucose 128 H Total Bilirubin 0.3 AST 15 ALT 48 Alkaline Phosphatase 120 H Microbiology Data (last 24 hrs): 10/11/22 00:57 Throat Group A Streptococcus Rapid Screen - Final Assessment and Plan - Plan Assessment plan Cellulitis right lower extremity lymphangitis. Mild hyponatremia Microcytic anemia DVT prophylaxis Assessment plan Cellulitis right lower extremity lymphangitis. Infectious disease consult IV vancomycin, cefepime IV fluids, IV antibiotics, as needed analgesics, WBCs elevated at 14.40, with left shift Lactic is normal Trend cultures Ultrasound of the right lower extremity negative DVT Mild hyponatremia IV fluids, trend electrolytes Microcytic anemia Trend H&H ,microcytic anemia at 10.8, 33.3 DVT prophylaxis Cardiac diet Full code , Discharge Plan: Home Plan to discharge in: 48 Hours - Advance Directives Does patient have a Living Will: No Does patient have a Durable POA for Healthcare: No - Code Status/Comfort Care Code Status: Full Code Physician Review: Patient Assessed, Agree with Above Assessment and Plan Time Spent Managing Pts Care (In Minutes): 50
[2022-10-11] MEDS ORDERED: dexAMETHasone 10 MG/ML VIAL ONE (02:28)
[2022-10-11] MEDS ORDERED: VANCOMYCIN 1 GM/VIAL ONE (02:29)
[2022-10-11] MEDS ORDERED: NA CHLORIDE 0.9% 250 ML ONE (02:29)
[2022-10-11] MEDS ORDERED: VANCOMYCIN 500 MG/VIAL ONE (02:29)
[2022-10-11] MEDS ORDERED: CEFEPIME 1 GM/VIAL ONE (02:29)
[2022-10-11] MEDS ORDERED: NA CHLORIDE 0.9% 100 ML ONE (02:29)
[2022-10-11] MEDS ORDERED: NA CHLORIDE 0.9% 2,000 ML ONE (02:30)
[2022-10-11] MEDS ORDERED: KETOROLAC 30 MG/ML INJ IV PRN (02:36)
[2022-10-11] MEDS ORDERED: ALPRAZOLAM 0.25 MG TABLET PO PRN (02:36)
[2022-10-11] MEDS ORDERED: ACETAMINOPHEN 500 MG TAB PO PRN (02:36)
[2022-10-11] MEDS ORDERED: ONDANSETRON 4 MG/2 ML VIAL IV PRN (02:36)
[2022-10-11 04:56] VITALS: BMI 37.8
[2022-10-11] MEDS ORDERED: HEPARIN 5000 UNIT/ML 1 ML VIAL IV SCH (05:00)
[2022-10-11] MEDS: NA CHLORIDE 0.9% 1,000 ML IV SCH ×3 (05:24→23:34)
[2022-10-11 06:26] VITALS: O2SAT 96
[2022-10-11] MEDS: CEFEPIME 2 GM in NA CHLORIDE 0.9% 100 ML IV SCH ×2 (08:13→17:09)
[2022-10-11] MEDS: ENOXAPARIN 40 MG/0.4 ML SQ SCH (08:13)
[2022-10-11] MEDS: LACTOBACILLUS/ACIDOPHILUS TAB PO SCH (08:16)
[2022-10-11] MEDS ORDERED: POTASSIUM 25 MEQ EFFERV TAB PO ONE (09:00)
[2022-10-11] MEDS ORDERED: VANCOMYCIN 1.75 GM in NA CHLORIDE 0.9% 500 ML IVPB SCH (09:00)
[2022-10-11 09:14] LABS: Absolute Lymphocytes (CBC) 1.1 K/uL (0.7-4.9); Hematocrit 32.6 % (36.0-45.0); Lymphocytes % 8.5 % (15.3-44.8); MCV 78.5 fL (80-100); MPV 6.7 fL (7.6-11.3); Platelets 327 thou/uL (152-406); RBC Red Blood Cell Count 4.16 M/uL (3.86-4.86)
[2022-10-11] MEDS: VANCOMYCIN 1.5 GM in NA CHLORIDE 0.9% 500 ML IVPB SCH ×2 (09:16→21:24)
[2022-10-11 09:39] LABS: Blood Morphology Comment NOT SEEN (NOT SEEN); Platelet Estimate ADEQ; White Blood Cell Scan OK (OK)
[2022-10-11] MEDS ORDERED: CEFEPIME 1 GM in NA CHLORIDE 0.9% 100 ML IV SCH (10:00)
--- NOTE | 2022-10-11 13:51 | CON ---
History Of Present Illness: This is a 46-year-old female. I was consulted for right lower extremity cellulitis. The patient is coming in with right lower extremity pain and tenderness started Saturda y from the groin area down to her right leg and also has a purplish red discoloration, especially inv olving the right francisco area. The patient was seen at [facility] Emergency Room. A CT scan of the abdomen a nd pelvis was negative. The patient is admitted for further investigation and management of cellulit is of right lower extremity and lymphadenitis and sepsis. Feeling much better today. Still has pain in her right leg. Denies any other medical problems. Her hemoglobin A1c is 6.6 with elevated white blood cell count and anemia. Past Medical History: Denies. Past Surgical History: positive. Social History: Alcohol positive. Tobacco negative. Family History: Noncontributory. Medications: Include cefepime and vancomycin. See MAR for other medications. Allergies: NO KNOWN DRUG ALLERGIES. Review of Systems: A 10-point review was performed. Physical Examination: General: This is a 46-year-old female, lying in bed, not in any acute cardiopulmonary distress. Vital Signs: Temperature 97, pulse 77, respirations 14, blood pressure 101/57. HEENT: Unremarkable. Neck: Supple. Lungs: Clear to auscultation. Heart: S1, S2. Regular. Abdomen: Soft, nontender. Bowel sounds present. Obese. Extremity: Right leg with erythematous changes and purplish discoloration of the francisco area with eryt hematous changes also noted in thigh region with tenderness in the right inguinal. No lymphadenopath y was noted. Laboratory Data: Shows WBC 13.3 down from 14.4, hemoglobin 10.5, platelets are 327. Chemistry shows BUN of 10, creatinine 0.6. Liver enzyme within normal limits. Albumin level of 2.7. Hemoglobin A1 c of 6.6. Blood cultures are pending. Assessment And Plan: Right lower extremity cellulitis in a 46-year-old female with newly diagnosed d iabetes mellitus, anemia of chronic disease, protein-calorie malnourishment. Continue antibiotic for 2 weeks pending culture results. Can be switched to doxycycline and Cipro. Keep leg elevated when possible. We will follow the patient as needed. NF/MODL Voice ID: [id number] Report ID: [id number]
[2022-10-11] MEDS ORDERED: VANCOMYCIN 1 GM in NA CHLORIDE 0.9% 250 ML IVPB SCH (14:00)
[2022-10-12] MEDS: CEFEPIME 2 GM in NA CHLORIDE 0.9% 100 ML IV SCH (01:15)
[2022-10-12 03:46] LABS: Absolute Lymphocytes (CBC) 1.5 K/uL (0.7-4.9); Hematocrit 28.3 % (36.0-45.0); Lymphocytes % 10.6 % (15.3-44.8); MCV 79.2 fL (80-100); MPV 6.9 fL (7.6-11.3); Platelets 312 thou/uL (152-406); RBC Red Blood Cell Count 3.58 M/uL (3.86-4.86)
[2022-10-12 03:53] LABS: Potassium 3.8 mEq/L (3.5-5.1)
[2022-10-12] MEDS: NA CHLORIDE 0.9% 1,000 ML IV SCH ×3 (05:40→19:00)
[2022-10-12] MEDS: LACTOBACILLUS/ACIDOPHILUS TAB PO SCH (08:24)
[2022-10-12] MEDS ORDERED: POTASSIUM 25 MEQ EFFERV TAB PO ONE (09:00)
[2022-10-12] MEDS ORDERED: CIPROFLOXACIN 400mg IV 400 MG/200 ML BAG IV SCH (09:00)
[2022-10-12] MEDS ORDERED: DOXYCYCLINE 100 MG in NA CHLORIDE 0.9% 100 ML IVPB SCH (09:00)
--- NOTE | 2022-10-12 10:20 | P.PN ---
Subjective Date of Service: 10/12/22 No acute events overnight. She reports that her right lower extremity pain has improved significantly. The redness and swelling seem to have also improved. She denies any fevers, chills, chest pain, or shortness of breath. Review of Systems 10-point ROS is otherwise unremarkable Integumentary: Rash (right anterior francisco) Physical Examination - Vital Signs Temperature: 97.3 F Blood Pressure: 101/63 Pulse: 68 Respirations: 14 Pulse Ox (%): 97 - Physical Exam General: Alert, In no apparent distress, Oriented x3 HEENT: Atraumatic, Mucous membr. moist/pink, Sclerae nonicteric Neck: JVD not distended Respiratory: Clear to auscultation bilaterally, Normal air movement Cardiovascular: No edema, Regular rate/rhythm, Normal S1 S2, No gallops, No rubs, No murmurs Gastrointestinal: Normal bowel sounds, Soft and benign, Non-distended, No tenderness, No rebound, No guarding Musculoskeletal: No clubbing Integumentary: Erythema (erythema, swelling, tenderness of right anterior francisco - improved compared to yesterday) Neurological: Normal speech, Normal affect - Studies Microbiology Data (last 24 hrs): 10/11/22 00:57 Throat Group A Streptococcus Rapid Screen - Final 10/11/22 00:57 Throat Culture & Sensitivity - Final NORMAL UPPER RESPIRATORY MALACHI GROWN. Assessment And Plan - Plan # Sepsis likely secondary to Right Lower Extremity Nonpurulent Cellulitis # Right Inguinal/Medial Thigh Lymphadenopathy She met SIRS criteria based on HR > 90 bpm, RR > 20 breaths/min, and WBC > 12,000, and the suspected source is cellulitis. - Infectious Diseases consulted and she was evaluated by Dr. Oropeza - recommendations appreciated - Recommended switching vancomycin + cefepime to ciprofloxacin + doxycycline - Right lower extremity Doppler = "1. Enlarged, reactive appearing right inguinal versus proximal medial right thigh lymph nodes with largest measuring up to 1.5 cm in short axis diameter, but maintaining normal fatty hilum. Favored to be reactive. Follow-up evaluation in 4-6 weeks with repeat sonographic imaging recommended to evaluate for resolution. 2. 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
[2022-10-12] MEDS: ENOXAPARIN 40 MG/0.4 ML SQ SCH (10:25)
--- NOTE | 2022-10-12 11:16 | RAD REPORT ---
EXAM DESCRIPTION: US - Extremity Venous Uni Ltd - 10/11/2022 1:20 am CLINICAL HISTORY: The patient is 46 years old and is Female; PAIN Extremity Venous Uni Ltd [facility] MAIN TECHNIQUE: Real-time duplex ultrasound scan of the right lower extremity veins integrating B-mode tw o-dimensional vascular structure, Doppler spectral analysis, color flow Doppler imaging and compressi on. COMPARISON: No relevant prior studies available. FINDINGS: DEEP VEINS: Unremarkable. No DVT in the visualized common femoral, femoral, proximal d eep femoral or popliteal veins. The veins demonstrate normal color flow, are normally compressible, with normal phasic flow and/or augmentation response. SUPERFICIAL VEINS: Unremarkable. No thrombus in the visualized great saphenous vein. SOFT TISSUES: No acute findings. No popliteal cyst. LYMPH NODES: Enlarged, reactive appearing right inguinal versus proximal medial right thigh lymph n odes with largest measuring up to 1.5 cm in short axis diameter, but maintaining normal fatty hilum. IMPRESSION: 1. Enlarged, reactive appearing right inguinal versus proximal medial right thigh lymp h nodes with largest measuring up to 1.5 cm in short axis diameter, but maintaining normal fatty hilu m. Favored to be reactive. Follow-up evaluation in 4-6 weeks with repeat sonographic imaging recomm ended to evaluate for resolution. 2. No right lower extremity DVT identified. Electronically signed by: Yogi Lopez MD 10/11/2022 1:50 AM CDT Due to temporary technical issues with the PACS/Fluency reporting system, reports are being signed by the in house radiologists without review as a courtesy to insure prompt reporting. The interpreting radiologist is fully responsible for the content of the report.
[2022-10-12] MEDS: METFORMIN HCL 500 MG TAB PO SCH ×2 (11:26→17:08)
--- NOTE | 2022-10-12 16:32 | EKG ---
Test Date: 2022-10-11 Test Time: 01:24:51 Director [place] [employer]: BRINA MEASUREMENT RESULTS: Intervals: Rate: 109 HI: 126 QRSD: 76 QT: 320 QTc: 430 [place]: P: 28 HI: 126 QRS: 6 T: 28 INTERPRETIVE STATEMENTS: Sinus tachycardia Cannot rule out Anterior infarct, age undetermined Abnormal ECG No previous ECG available for comparison Electronically Signed On 10-12-22 16:27:46 CDT by Elliot Kidd
[2022-10-12] MEDS: DOXYCYCLINE 100 MG CAP PO SCH (20:28)
[2022-10-12] MEDS: CIPROFLOXACIN HCL 500 MG TAB PO SCH (20:28)
[2022-10-13] MEDS: NA CHLORIDE 0.9% 1,000 ML IV SCH (04:40)
[2022-10-13 08:47] LABS: Absolute Lymphocytes (CBC) 4.2 K/uL (0.7-4.9); Hematocrit 28.7 % (36.0-45.0); Lymphocytes % 44.9 % (15.3-44.8); MCV 78.5 fL (80-100); MPV 6.7 fL (7.6-11.3); Platelets 321 thou/uL (152-406); RBC Red Blood Cell Count 3.66 M/uL (3.86-4.86)
[2022-10-13 09:00] LABS: Potassium 3.5 mEq/L (3.5-5.1)
[2022-10-13 09:11] VITALS: TEMP 97.2
[2022-10-13] MEDS: CIPROFLOXACIN HCL 500 MG TAB PO SCH (09:53)
[2022-10-13] MEDS: LACTOBACILLUS/ACIDOPHILUS TAB PO SCH (09:53)
[2022-10-13] MEDS: ENOXAPARIN 40 MG/0.4 ML SQ SCH (09:53)
[2022-10-13] MEDS: METFORMIN HCL 500 MG TAB PO SCH (09:53)
[2022-10-13] MEDS: DOXYCYCLINE 100 MG CAP PO SCH (09:53)
--- NOTE | 2022-10-13 14:14 | P.DS ---
Admission Date: 10/11/22 Discharge Date: 10/13/22 Disposition: ROUTINE DISCHARGE Discharge Condition: GOOD Reason for Admission: Right Lower Extremity Cellulitis Consultations: 1. Infectious Diseases Hospital Course: DIAGNOSES: # Sepsis likely secondary to Right Lower Extremity Nonpurulent Cellulitis # Right Inguinal/Medial Thigh Lymphadenopathy # Type II Diabetes Mellitus # Anemia HOSPITAL COURSE: Ms. Olena Reyes is a 46 year old female with a past medical history significant for type II diabetes mellitus who was admitted to the [facility] [place], [place] on 10/11/2022 for right lower extremity cellulitis. She was admitted to Medicine service. Upon further evaluation, she was found to have sepsis secondary to right lower extremity nonpurulent cellulitis. Her right lower extremity Doppler ultrasound revealed, "1. Enlarged, reactive appearing right inguinal versus proximal medial right thigh lymph nodes with largest measuring up to 1.5 cm in short axis diameter, but maintaining normal fatty hilum. Favored to be reactive. Follow-up evaluation in 4-6 weeks with repeat sonographic imaging recommended to evaluate for resolution. 2. No right lower extremity DVT identified." Infectious Diseases was consulted and she was evaluated by Dr. Oropeza. She was started on IV antibiotics and, over the course of her hospitalization, her symptoms improved significantly. Dr. Oropeza has cleared her for discharge home with 14 total days of ciprofloxacin and doxycycline and outpatient follow-up. Incidentally, she was found to have right inguinal/medial thigh lymphadenopathy. She was advised that, although this could be reactive, she should have a repeat ultrasound in about 4 weeks to ensure resolution of the lymph node to exclude m alignancy. She verbalized understanding and agreed to make the follow-up appointment with [facility]. She was also found to have type II diabetes mellitus. She was started on metformin and advised to follow-up with her PCP for further management. On 10/13/2022, she was seen on rounds and deemed medically stable for discharge. She was discharged with instructions to schedule follow-up appointments with her PCP ([facility]). She was provided prescriptions for ciprofloxacin, doxycycline, and metformin. She was given the opportunity to ask questions and reported no further questions. Furthermore, all questions were answered to the best of my ability. Today, I personally spent 25 minutes on her case, of which greater than 50% of the time was spent in patient education, counseling, and coordination of care as described above. - Physical Exam General: Alert, In no apparent distress, Oriented x3 HEENT: Atraumatic, Mucous membr. moist/pink, Sclerae nonicteric Respiratory: Clear to auscultation bilaterally, Normal air movement Cardiovascular: No edema, Regular rate/rhythm, No murmurs Gastrointestinal: Normal bowel sounds, Soft, Non-distended, No tenderness Musculoskeletal: No clubbing Integumentary: Erythema (erythema, swelling, tenderness of right anterior francisco - much improved) Neurological: Normal speech, Normal affect Vital Signs/Physical Exam: Temp Pulse Resp BP Pulse Ox 97.2 F 71 16 101/56 L 98 10/13/22 11:23 10/13/22 11:23 10/13/22 11:23 10/13/22 11:23 10/13/22 11:23 Laboratory Data at Discharge: WBC 9.30 thou/uL (4.3-10.9) 10/13/22 08:19 Hgb 9.5 g/dL (12.0-15.0) L 10/13/22 08:19 Hct 28.7 % (36.0-45.0) L 10/13/22 08:19 Plt Count 321 thou/uL (152-406) 10/13/22 08:19 PT 12.7 SECONDS (9.5-12.5) H 10/11/22 00:57 INR 1.15 10/11/22 00:57 APTT 30.7 SECONDS (24.3-36.9) 10/11/22 00:57 Sodium 139 mEq/L (136-145) 10/13/22 08:19 Potassium 3.5 mEq/L (3.5-5.1) 10/13/22 08:19 BUN 14 mg/dL (7-18) 10/13/22 08:19 Creatinine 0.41 mg/dL (0.55-1.02) L 10/13/22 08:19 Glucose 100 mg/dL (74-106) 10/13/22 08:19 Magnesium 2.0 mg/dL (1.6-2.4) 10/12/22 03:22 Total Bilirubin 0.3 mg/dL (0.2-1.0) 10/11/22 00:57 AST 15 U/L (15-37) 10/11/22 00:57 ALT 48 U/L (13-56) 10/11/22 00:57 Alkaline Phosphatase 120 U/L (45-117) H 10/11/22 00:57 Home Medications: Ciprofloxacin HCl 500 mg PO BID 12 Days #24 tab 10/13/22 Doxycycline Hyclate 100 mg PO BID 12 Days #24 tab 10/13/22 Metformin HCl [Glucophage*] 500 mg PO BIDWM #60 tab 10/13/22 New Medications: Ciprofloxacin HCl 500 mg PO BID 12 Days #24 tab Doxycycline Hyclate 100 mg PO BID 12 Days #24 tab Metformin HCl [Glucophage*] 500 mg PO BIDWM #60 tab Physician Discharge Instructions: 1. Please call and schedule a follow-up appointment with your PCP ([facility]) in 3-5 days - Your bloodwork showed anemia. Please discuss further evaluation, including a colonoscopy, with your PCP - You tested positive for diabetes. It is important that you schedule yearly dilated eye exams, yearly urine testing (urine microalbumin), and check the bottom of your feet for ulcers monthly Diet: ADA Activity: Ad miguel Followup: Unknown,U [Primary Care Provider] - Time spent managing pt's care (in minutes): 25
--- NOTE | 2022-10-13 15:42 | PN ---
Subjective: Patient is feeling better, but still having some discomfort to the right leg. Denies an y headache, nausea, vomiting, chest pain, abdominal pain, constipation, or diarrhea. Currently on Ci pro and doxycycline. Objective: Vital signs: Reviewed. Lungs: Clear to auscultation. Heart: S1, S2 regular. Abdomen: Soft, nontender. Bowel sounds present. Extremities: Right leg with erythematous changes, improving. Laboratory Data: Reviewed. Assessment/plan: Right lower extremity cellulitis. Continue doxycycline and Cipro, total of 2 weeks . We will consider taking probiotic. We will follow the patient as needed. NF/MODL Voice ID: [id number] Report ID: [id number]
[2022-10-13 16:35] VITALS: BP 125/74
== END 2022-10-13 17:30 | disposition home or self-care (01) | DRG 872 ==
LOC: ER 00:29 → 2ND 02:47
PROVIDERS: ADMIT Hospitalist; ATTEND Internal Medicine
DX: A41.9 Sepsis, unspecified organism (principal); L03.115 Cellulitis of right lower limb; E87.1 Hypo-osmolality and hyponatremia; E46 Unspecified protein-calorie malnutrition; D64.9 Anemia, unspecified; E11.9 Type 2 diabetes mellitus without complications; D63.8 Anemia in other chronic diseases classified elsewhere; R59.1 Generalized enlarged lymph nodes; Z68.37 Body mass index [BMI] 37.0-37.9, adult; Z79.84 Long term (current) use of oral hypoglycemic drugs; Z79.899 Other long term (current) drug therapy
CPT/HCPCS: 36415; 80048; 80053; 80202; 82550; 82947; 83036; 83605; 83735; 85025; 85610; 85730; 87040; 87070; 87081; 93005; 93971; 99284; J0692; J0744; J1100; J1650; J7030; J7040; J7050

== ENCOUNTER → 2023-12-10 | Emergency (ER) | payer OTHER, SELFPAY ==
--- OUTSIDE RECORDS SUMMARY | 2023-12-10 07:49 | XMS REPORT | Continuity of Care Document ---
Author Name Unknown Address [address] [facility] [place] [address] [facility] thconnect Address [address] [place] [address] Care Team Providers Care Artist Relationship Manager Name Role Phone PCP, PATIENT DOES NOT HAVE A Primary Care Physic jennifer Unavailable CLARKE ROBLES Attending Clinician Unavailable LAB90 Attending Clinician Unavailable JARAD RAO Attending Clinician Unavail able MD MICA Attending Clinician Unavailab JUAN Ann 1 Attending Clinician Unavailable Aimee Wells MD Attending Clinician AIMEE WELLS Attending Clinician Unavailable AIMEE WELLS Admitting Clinician Unavailable Payers Payer Name Policy Type Policy Number Effective Date Expirati on Date Source [employer] MP [employer] 5 O [employer] [place] [employer] 94 ON 9 [id number] 2023 00:00:00 Problems Condition Name Condition Details Condition Category Status Onset Date Resolution Date Last Treatment Date Treating Clinician Comments Source Elevated serum globulin level Elevated serum globulin level Disease Active 09-25 00:00: 00 Edel prado Elevated liver function tests Elevated liver function tests Disease Active 09-25 00:00: 00 Edel prado General counseling and advice for contracept leah management General counseling and advice for contracept leah management Disease Recurre mne 2013-02 00:00: 00 Overview: Formattin g of this note might be different from the original. ICD10 Diagnosis Term Manager Database Utility [facility] Obesity Obesity Disease Active 2013-02 00:00: 00 Overview: Formattin g of this note might be different from the original. ICD10 Diagnosis Term Manager Database Utility [facility] Anemia Anemia Disease Active 2013-02 00:00: 00 Overview: Formattin g of this note might be different from the original. ICD10 Diagnosis Term Manager Database Utility [facility] Multiparit y Multiparit y Disease Active 2013-02 015 00:00: 00 [facility] Severe obesity Severe obesity Disease Active Edel Seybold - Externa l Prediabete s Prediabete s Disease Active Edel Seybold - Externa l Hemorrhoid s Hemorrhoid s Disease Active Edel Seybold - Externa l Family history of colon cancer in mother Family history of colon cancer in mother Disease Active Edel Seybold - Externa l Family history of stomach cancer Family history of stomach cancer Disease Active Edel Seybold - Externa l 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 Disease Active Edel Seybold - Externa l Type 2 diabetes mellitus with hyperglyce deloris, without long-term current use of insulin (multi HCC) Type 2 diabetes mellitus with hyperglyce deloris, without long-term current use of insulin (multi HCC) Disease Active Edel Seybold - Externa l Allergies, Adverse Reactions, Alerts Allergy Name Allergy Type Status Severity Reaction(s) Onset Date Inactive Date Treating Clinician Comments Source NO KNOWN ALLERGIE S Drug Class Active [facility] Social History Social Habit Start Date Stop Date Quantity Comments Source Sexual orientation Herminia lorna Wang - External History of tobacco use Cigarette Smoker Edel patel - External Gender identity [facility] Alcoholic beverage intake 2023-09-26 00:00:00 2023-09-26 00:00:00 Current drinker of alcohol (finding) Edel Wang - External History of Social function 2023-08-09 00:00:00 2023-08-09 00:00:00 Edle Wang - External Education 2023-08-09 00:00:00 2023-08-09 00:00:00 17 Edel Seybold - External Alcohol Comment 2023-08-09 00:00:00 2023-08-09 00:00:00 occassional Edel Yadav Cigarettes smoked current (pack per day) - Reported 2023-08-09 00:00:00 2023-08-09 00:00:00 Edel Wang - External Cigarette pack-years 2023-08-09 00:00:00 2023-08-09 00:00:00 Edel Wang - External Tobacco use and exposure 2023-08-09 00:00:00 2023-08-09 00:00:00 Smokeless tobacco non-user Edel Wang - External Alcohol intake 2022-10-10 00:00:00 2022-10-10 00:00:00 Current non-drinker of alcohol (finding) [facility] Sex assigned at 1975 00:00:00 1975 00:00:00 Edel Yenisabeljorge Tobias Leif Smoking Status Start Date Stop Date Source Occasional tobacco smoker 2023-08-09 00:00:00 Edel Yadav Never smoked tobacco [facility] Medications Ordered Medication Name Filled Medication Name Start Date Stop Date Current Medication? Ordering Clinician Indication Dosage Frequency Signature (SIG) Comments Components Source Metformin HCl 500 MG oral Tablet 09-25 00:00: 00 Yes [id number] 500mg QD Take 1 tablet (500 mg total) by mouth daily (with breakfast) . Edel Malhotraa l Metformin HCl 500 MG oral Tablet 08-15 00:00: 00 09-25 00:00 :00 No [id number] 500mg QD Take 1 tablet (500 mg total) by mouth daily (with breakfast) . Edel Malhotraa l cefTRIAXone (ROCEPHIN) 1,000 mg in NaCl 0.9% (NS) 100 mL MINI-BAG 10-10 06:30: 00 10-10 06:33 :00 No 1000mg 1,000 mg, IV Piggyback, ONCE, 1 dose, On 10/10/22 at 0130, Administer over 30 Minutes, 100 mL
Reas on for Anti-Infec tive: Documented Infection< br>Documen jewell Infection Site: Urine
D uration of Therapy: Other (see Comments) [facility] iopamidol (ISOVUE 370-500 mL) injection 100 mL 10-10 06:15: 00 10-10 06:15 :00 No [id number] 100mL 100 mL, Intravenou s, ONCE, 1 dose, On Tue10/10/22 at 0115, Routine [facility] ketorolac (TORADOL) injection 30 mg 10-10 06:15: 00 10-10 05:12 :00 No 30mg 30 mg, Slow IV Push, ONCE, 1 dose, On Tue10/10/22 at 0115, Routine [facility] NaCl 0.9% (NS) IV infusion 1,000 mL 10-10 06:00: 00 10-10 06:33 :00 No 1000mL at 999 mL/hr, Intravenou s, ONCE, 1 dose, On Tue10/10/22 at 0100, Routine [facility] metoclopram debra HCl (REGLAN) injection 10 mg 10-10 05:15: 00 10-10 05:12 :00 No 10mg 10 mg, Slow IV Push, ONCE, 1 dose, On 10/10/22 at 0015, EMY [facility] acetaminoph en (TYLENOL) tablet 1,000 mg 10-10 04:30: 00 10-10 04:43 :00 No 1000mg 1,000 mg, Oral, ONCE, 1 dose, On 10/09/22 at 2330, EMY [facility] cefdinir 300 mg capsule 10-10 00:00: 00 Yes [id number] 300mg Take 1 capsule by mouth every 12 (twelve) hours. [facility] ibuprofen 800 mg tablet 10-10 00:00: 00 Yes [id number] 800mg Take 1 tablet by mouth every 8 (eight) hours as needed for Temp > 38.5 C or Pain (scale 4-6). [facility] ondansetron (ZOFRAN) 4 mg tablet 10-10 00:00: 00 Yes [id number] 4mg Take 1 tablet by mouth every 8 (eight) hours as needed for Nausea and Vomiting (N/V). [facility] Condoms Latex Lubricated (KIMONO TEXTURED CONDOMS) Catherine 10-15 00:00: 00 Yes [id number] Use as directed [facility] Immunizations Ordered Immunization Name Filled Immunization Name Date Status Comments Source TDAP 2013-10-17 00:00:00 Completed [facility] TD, NOS 2006-02-14 00:00:00 Completed [facility] Rubella 2002-10-25 00:00:00 Completed [facility] MMR- Measles, Mumps, Rubella Unknown Completed Edel Dickerson d - External Rubella Unknown Completed Edel mckenzie - External Tdap- (Boostrix, Adacel) Unknown Completed Edel Wang - External Vital Signs Vital Name Observation Time Observation Value Comments S ource Systolic blood pressure 2023-09-26 19:55:00 112 mm[Hg] Edel Yenybo ld - External Diastolic blood pressure 2023-09-26 19:55:00 60 mm[Hg] Edel Yenybo ld - External Heart rate 2023-09-26 19:55:00 88 /min Edison Wang - External Body temperature 2023-09-26 19:55:00 37.5 Liat Edel Wang - External Body height 2023-09-26 19:55:00 162.6 cm Kristine Wang - External Body weight 2023-09-26 19:55:00 103.874 kg Kristine sagastume Seybjorge - External BMI 2023-09-26 19:55:00 39.31 kg/m2 Kristine sagastume Seybold - External Oxygen saturation in Arterial blood by Pulse oximetry 2023-09-26 19:55:00 96 /min Edel Worley ld - External Systolic blood pressure 2023-08-09 20:00:00 112 mm[Hg] Edel Saucedao ld - External Diastolic blood pressure 2023-08-09 20:00:00 70 mm[Hg] Edel Worley ld - External Heart rate 2023-08-09 20:00:00 94 /min Edison Wang - External Body temperature 2023-08-09 20:00:00 36.83 Liat Edel Yenybjorge - External Respiratory rate 2023-08-09 20:00:00 18 /min Edel Wang - External Body height 2023-08-09 20:00:00 162.6 cm Kristine sagastume Seybold - External Body weight 2023-08-09 20:00:00 104.781 kg Kristine sagastume Seybold - External BMI 2023-08-09 20:00:00 39.65 kg/m2 Kristine sagastume Seybold - External Oxygen saturation in Arterial blood by Pulse oximetry 2023-08-09 20:00:00 96 /min Edel Worley ld - External Systolic blood pressure 2022-10-10 06:32:00 111 mm[Hg] [facility] Diastolic blood pressure 2022-10-10 06:32:00 60 mm[Hg] [facility] Heart rate 2022-10-10 06:32:00 110 /min [facility] Respiratory rate 2022-10-10 06:32:00 18 /min [facility] Oxygen saturation in Arterial blood by Pulse oximetry 2022-10-10 06:32:00 96 /min [facility] Body temperature 2022-10-10 06:10:00 37.61 Liat [facility] Body height 2022-10-10 04:11:00 162.6 cm [facility] Body weight 2022-10-10 04:11:00 99.791 kg [facility] BMI 2022-10-10 04:11:00 37.76 kg/m2 [facility] Procedures Procedure Date / Time Performed Performing Clinicia n Source CT ABDOMEN PELVIS W CONTRAST 2022-10-10 05:25:12 Aimee Wells [facility] COVID-19 (ID NOW RAPID TESTING) 2022-10-10 05:09:00 Aimee Wells [facility] NOTICE OF PRIVACY PRACTICES 2022-10-10 04:37:50 Doctor Unassigned, [place] [facility] CONSENT/REFUSAL FOR DIAGNOSIS AND TREATMENT 2022-10-10 04:37:27 Doctor Unassigned, [place] [facility] AMYLASE 2022-10-10 04:26:00 Aimee Wells [facility] LIPASE 2022-10-10 04:26:00 Aimee Wells [facility] COMP. METABOLIC PANEL (65510) 2022-10-10 04:26:00 Aimee Wells [facility] CBC WITH DIFF 2022-10-10 04:26:00 Aimee Wells [facility] URINALYSIS 2022-10-10 04:26:00 Aimee Wells [facility] Encounters Start Date/Time End Date/Time Encounter Type Admission Type Attending [facility] Care Facility Care Department Encounter ID Source 2023-12-14 08:15:00 2023-12-14 08:15:00 Outpatient EDEL WARD [id number] Edel [facility] 2023-11-18 00:00:00 2023-11-18 00:00:00 Outpatient CLARKE ROBLES [id number] [facility] 2023-11-17 00:00:00 2023-11-17 00:00:00 Outpatient CLARKE ROBLES [id number] Edel [facility] 2023-11-16 08:30:00 2023-11-16 08:30:00 Outpatient LAB90 EDEL WARD [id number] Edel [facility] 2023-11-02 00:00:00 2023-11-02 00:00:00 Outpatient CLARKE ROBLES [id number] [facility] 2023-10-07 00:00:00 2023-10-07 00:00:00 Outpatient EDEL WARD [id number] Edel [facility] 2023-09-28 00:00:00 2023-09-28 00:00:00 Outpatient EDEL WARD [id number] Edel [facility] 2023-09-26 15:00:00 2023-09-26 15:00:00 Outpatient CLARKE ROBLES [id number] [facility] 2023-09-21 08:30:00 2023-09-21 08:30:00 Outpatient JARAD RAO EDEL WARD [id number] Edel [facility] 2023-09-21 00:00:00 2023-09-21 00:00:00 Outpatient MD EDEL PHELAN [id number] Edel [facility] 2023-08-31 16:00:00 2023-08-31 16:00:[address], TECH EDEL WARD [id number] Edel [facility] 2023-08-23 15:00:00 2023-08-23 15:00:[address], TECH EDEL WARD [id number] Edel [facility] 2023-08-23 00:00:00 2023-08-23 00:00:00 Outpatient MD EDEL PHELAN [id number] Edel [facility] 2023-08-16 00:00:00 2023-08-16 00:00:00 Outpatient PREZASCLARKE EDEL WARD [id number] [facility] 2023-08-12 00:00:00 2023-08-12 00:00:00 Outpatient PREZAS, CLARKE EDEL WARD [id number] [facility] 2023-08-11 00:00:00 2023-08-11 00:00:00 Outpatient PREZAS, CLARKE EDEL WARD [id number] Edel [facility] 2023-08-10 08:55:00 2023-08-10 08:55:00 Outpatient LAB90 EDEL WARD [id number] [facility] 2023-08-09 15:15:00 2023-08-09 15:15:00 Outpatient PREZAS, CLARKE EDEL WARD [id number] Edel [facility] 2023-06-20 14:30:00 2023-06-20 14:30:00 Outpatient PREZASCLARKE EDEL WARD [id number] Edel [facility] 2023-02-21 13:35:54 2023-02-21 13:35:54 Outpatient [facility] [id number] Jose R Quintero 2023-02-18 16:11:33 2023-02-18 16:11:33 Outpatient [facility] [id number] Jose R Quintero 2022-10-18 10:35:20 2022-10-18 10:35:20 Outpatient [facility] [id number] Jose R Quintero 2022-10-09 23:15:00 2022-10-10 01:45:[address] [facility] [id number] [facility] 2022-10-09 23:15:00 2022-10-10 01:45:00 Emergency X AIMEE WELLS [facility] ERT [id number] [facility] 2022-09-27 13:29:48 2022-09-27 13:29:48 Outpatient [facility] [id number] Jose R Quintero 2022-06-29 08:31:14 2022-06-29 08:31:14 Outpatient [facility] [id number] Jose R Quintero 2022-06-24 15:09:27 2022-06-24 15:09:27 Outpatient [facility] [id number] Jose R Quintero 2022-06-23 15:04:15 2022-06-23 15:04:15 Outpatient [facility] [id number] Jose R Quintero 2022-03-24 15:29:17 2022-03-24 15:29:17 Outpatient [facility] [id number] Jose R Quintero Results Test Description Test Time Test Comments Results Result Co mments Source IRON BINDING CAPACITY AND IRON AND % [id number] 05:23:53* Test Item Value Reference Range Interpretation Comme nts IRON, SERUM (test code = 2222) 33 UG/DL 37-145 L UNSATURATED IBC (test code = 07014) 234 UG/DL 112-347 CALC TOTAL IBC (test code = 2077) 267 UG/DL 250-450 CALC % IRON SAT (test code = 2079) 12 % 20-50 L TSH, THIRD [id number] 04:32:11* Test Item Value Reference Range Interpretation Comme nts TSH, THIRD GENERATION (test code = 2821) 2.770 UIU/ML 0.400-4.100 UNLESS OTHERWISE INDICATED, ALL TESTING PERFORMED AT [facility] [address] [place] [address] SPENT GRAIN DRYER: JAMES HARRY M.D. [place] NUMBER [id number] [facility] [place]. [id number] HEMOGLOBIN [id number] 03:42:19* Test Item Value Reference Range Interpretation Comme nts HEMOGLOBIN A1c (test code = 73487) 6.9 % 4.2-5.6 H [employer] GUIDELINES FOR HGB A1C: PREDIABETES/INCREASED RISK . . . . . . . 5.7-6.4% DIAGNOSIS OF DIABETES . . . . . . . . . >=6.5% WITH CONFIRMATION OR APPROPRIATE SYMPTOMS NOTE: ASSAY MAY BE AFFECTED BY HEMOGLOBINOPATHIES (SICKLE CELL ANEMIA, S-C DISEASE, OTHERS) OR ARTIFICIALLY LOWERED BY DECREASED RED CELL SURVIVAL (HEMOLYTIC ANEMIAS, BLOOD LOSS, ETC.). CONSIDER ALTERNATE TESTING OR LABORATORY CONSULTATION. CBC W/AUTO DIFF WITH [id number] 03:31:23* Test Item Value Reference Range Interpretation Comme nts WBC (test code = 1001) 7.8 K/UL 3.5-11.0 RBC (test code = 1002) 4.56 M/UL 3.80-5.40 HEMOGLOBIN (test code = 1003) 11.5 G/DL 11.5-15.5 HEMATOCRIT (test code = 1004) 36.0 % 34.0-45.0 MCV (test code = 1005) 78.9 fL 80.0-99.0 L MCH (test code = 1006) 25.2 PG 25.0-33.0 MCHC (test code = 1007) 31.9 G/DL 31.0-36.0 RDW (test code = 1038) 16.8 % 11.5-15.0 H NEUTROPHILS (test code = 1008) 52.9 % LYMPHOCYTES (test code = 1010) 35.9 % MONOCYTES (test code = 1011) 6.6 % EOSINOPHILS (test code = 1012) 3.9 % BASOPHILS (test code = 1013) 0.4 % IMMATURE GRANULOCYTES (test code = 1036) 0.3 % NUCLEATED RBCS (test code = 1065) 0.0 /100 WBC'S See_Comment [Automated messa ge] The system which generated this result transmitted reference range: 0.0. The reference range was not used to interpret this result as normal/abnormal. PLATELET COUNT (test code = 1015) 400 K/UL 130-400 ABSOLUTE NEUTROPHILS (test code = 1066) 4.11 K/UL 1.50-7.50 ABSOLUTE LYMPHOCYTES (test code = 1067) 2.78 K/UL 1.00-4.00 ABSOLUTE MONOCYTES (test code = 1068) 0.51 K/UL 0.20-1.00 ABSOLUTE EOSINOPHILS (test code = 1040) 0.30 K/UL 0.00-0.50 ABSOLUTE BASOPHILS (test code = 1069) 0.03 K/UL 0.00-0.20 ABS IMMATURE GRANULOCYTES (test code = 1020) 0.02 K/UL 0.00-0.10 ABS NUCLEATED RBCS (test code = 24616) 0.00 K/UL 0.00-0.11 COMPREHENSIVE METABOLIC [id number] 02:16:54* Test Item Value Reference Range Interpretation Comme nts GLUCOSE (test code = 2217) 127 MG/DL 70-99 H BUN (test code = 2207) 10 MG/DL 6-20 CREATININE (test code = 2214) 0.45 MG/DL 0.60-1.30 L eGFR (2020 CKD-EPI) (test code = 35176) 119 ML/MIN/1.73 >60 CALC BUN/CREAT (test code = 2235) 22 RATIO 6-28 SODIUM (test code = 223) 136 MEQ/L 133-146 POTASSIUM (test code = 2228) 4.0 MEQ/L 3.5-5.4 CHLORIDE (test code = 2215) 103 MEQ/L 95-107 CARBON DIOXIDE (test code = 2206) 26 MEQ/L 19-31 CALCIUM (test code = 2209) 9.1 MG/DL 8.5-10.5 PROTEIN, TOTAL (test code = 222) 8.1 G/DL 6.1-8.3 ALBUMIN (test code = 2201) 3.9 G/DL 3.5-5.2 CALC GLOBULIN (test code = 2240) 4.2 G/DL 1.9-3.7 H CALC A/G RATIO (test code = 2234) 0.9 RATIO 1.0-2.6 L BILIRUBIN, TOTAL (test code = 2207) 0.2 MG/DL See_Comment [Automated me ssage] The system which generated this result transmitted reference range: <=1.2. The reference range was not used to interpret this result as normal/abnormal. ALKALINE PHOSPHATASE (test code = 2204) 118 U/L 40-120 AST (test code = 2218) 25 U/L 9-40 ALT (test code = 2219) 47 U/L 5-40 H LIPID [id number] 02:16:54* Test Item Value Reference Range Interpretation Comme nts CHOLESTEROL (test code = 2210) 160 MG/DL <200 TRIGLYCERIDES (test code = 2232) 125 MG/DL <150 HDL CHOLESTEROL (test code = 2220) 57 MG/DL >39 CALC LDL CHOL (test code = 2237) 80 MG/DL <100 NOTE: CALCULATED LDL IS BASED ON ALEX-CASTILLO METHOD WHICHINCLUDES ADJUSTABLE TRIGLYCERIDE:VLDL CHOLESTEROL RATIO.THIS FACTOR VARIES BY MEASURED TRIGLYCERIDE AND NON-HDLCHOLESTEROL CONCENTRATIONS WITH INCREASED CALCULATED LDL SEENIN HIGHER TRIGLYCERIDE OR LOWER NON-HDL SPECIMENS. FOR MOREINFORMATION, SEE CLIENT ANNOUNCEMENT AT [email or web address] RATIO LDL/HDL (test code = 2238) 1.40 RATIO <3.22 Notes Date/Time Note Provider Source 2022-10-10 01:36:30 Formatting of this n ote might be different from the original. Pt discharged home following ERP eval. Given all education and information regarding prescriptions; pain management; and follow up importance. Pt and daughter verbalize understanding. Vss. Alert and ambulatory to pov with daughter, Fredy Dennis RN [facility] 2022-10-09 23:08:55 Formatting of this n ote might be different from the original. CC: right upper quadrant rib pain that [...] with no assist Appears in moderate distress Dhara Dykes RN [facility]
== END ==
LOC: ER 07:45
DX: Z02.9 Encounter for administrative examinations, unspecified (principal)

== ENCOUNTER 2024-02-12 18:17 | Emergency (ER) | payer OTHER ==
--- OUTSIDE RECORDS SUMMARY | 2024-02-12 18:20 | XMS REPORT | Continuity of Care Document ---
Author Name Unknown Address [address] [facility] [address] [place] [address] [facility] Address [address] [facility] [place] [address] Care Team Providers Care Bed And Breakfast Operator Name Role Phone PCP, PATIENT DOES NOT HAVE A Primary Care Physic jennifer Unavailable CLARKE ROBLES Attending Clinician Unavailable LAB90 Attending Clinician Unavailable JARAD ARO Attending Clinician Unavail able MD MICA Attending Clinician Unavailab le PL, TECH 1 Attending Clinician Unavailable Aimee Wells MD Attending Clinician AIMEE WELLS Attending Clinician Unavailable AIMEE WELLS Admitting Clinician Unavailable Payers Payer Name Policy Type Policy Number Effective Date Expirati on Date Source [employer] MP [employer] [employer] 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 ICD10 Diagnosis Term Delivery Agent Utility [facility] Obesity Obesity Disease Active 2013-02 00:00: 00 Overview: Formattin g of this note might be different from the original. ICD10 Diagnosis Term Delivery Agent Utility [facility] Anemia Anemia Disease Active 2013-02 00:00: 00 Overview: Formattin g of this note might be different from the original. ICD10 Diagnosis Term Delivery Agent Utility [facility] Multiparit y Multiparit y Disease Active 2013-02 015 00:00: 00 [facility] Severe obesity Severe obesity Disease Active [...] NO KNOWN ALLERGIE S Drug Class Active [facility] Social History Social Habit Start Date Stop Date Quantity Comments Source Sexual orientation Herminia lorna Wang - External History of tobacco use Cigarette Smoker Edel patel - External Gender identity [facility] Alcoholic beverage intake 2023-09-26 00:00:00 2023-09-26 00:00:00 Current drinker of alcohol (finding) Edel Wang - External History of Social function 2023-08-09 00:00:00 2023-08-09 00:00:00 Edel Wang - External Education 2023-08-09 00:00:00 2023-08-09 00:00:00 17 Edel Wang - External Alcohol Comment 2023-08-09 00:00:00 2023-08-09 00:00:00 occassional Edel Tobias External Cigarettes smoked current (pack per day) - Reported 2023-08-09 00:00:00 2023-08-09 00:00:00 Edel Wang - External Cigarette pack-years 2023-08-09 00:00:00 2023-08-09 00:00:00 Edel Yenisabeljorge - External Tobacco use and exposure 2023-08-09 00:00:00 2023-08-09 00:00:00 Smokeless tobacco non-user Edel Wang - External Alcohol intake 2022-10-10 00:00:00 2022-10-10 00:00:00 Current non-drinker of alcohol (finding) [facility] Sex assigned at 1975 00:00:00 1975 00:00:00 Edel Yenisabeljorge Yadav Smoking Status Start Date Stop Date Source Occasional tobacco smoker 2023-08-09 00:00:00 Edel Yadav Never smoked tobacco [facility] Medications Ordered Medication Name Filled Medication Name Start Date Stop Date Current Medication? Ordering Clinician Indication Dosage Frequency Signature (SIG) Comments Components Source Metformin HCl 500 MG oral Tablet 09-25 00:00: 00 Yes [id number] 500mg QD Take 1 tablet (500 mg total) by mouth daily (with breakfast) . Edel Malhotraa l Metformin HCl 500 MG oral Tablet 08-15 00:00: 00 09-25 00:00 :00 No [id number] 500mg QD Take 1 tablet (500 mg [...]
D uration of Therapy: Other (see Comments) [facility] iopamidol (ISOVUE 370-500 mL) injection 100 mL 10-10 06:15: 00 10-10 06:15 :00 No [id number] 100mL 100 mL, Intravenou s, ONCE, 1 dose, On Tue10/10/22 at 0115, Routine [facility] ketorolac (TORADOL) injection 30 mg 10-10 06:15: 00 10-10 05:12 :00 No 30mg 30 mg, Slow IV Push, ONCE, 1 dose, On Tue10/10/22 at 0115, Routine [facility] NaCl 0.9% (NS) IV infusion 1,000 mL 10-10 06:00: 00 10-10 06:33 :00 No 1000mL at 999 mL/hr, Intravenou s, ONCE, 1 dose, On Tue10/10/22 at 0100, Routine [facility] metoclopram debra HCl (REGLAN) injection 10 mg 10-10 05:15: 00 10-10 05:12 :00 No 10mg 10 mg, Slow IV Push, ONCE, 1 dose, On Tue10/10/22 at 0015, EMY [facility] acetaminoph en (TYLENOL) tablet 1,000 mg 10-10 04:30: 00 10-10 04:43 :00 No 1000mg 1,000 mg, Oral, ONCE, 1 dose, On 10/09/22 at 2330, EM[facility] cefdinir 300 mg capsule 10-10 00:00: 00 Yes [id number] 300mg Take 1 capsule by mouth every 12 (twelve) hours. [facility] ibuprofen 800 mg tablet 10-10 00:00: 00 Yes [id number] 800mg Take 1 tablet by mouth every 8 (eight) hours as needed for Temp > 38.5 C or Pain (scale 4-6). [facility] ondansetron (ZOFRAN) 4 mg tablet 10-10 00:00: 00 Yes [id number] 4mg Take 1 tablet by mouth every 8 (eight) hours as needed for Nausea and Vomiting (N/V). [facility] Condoms Latex Lubricated (KIMONO TEXTURED CONDOMS) Catherine 10-15 00:00: 00 Yes [id number] Use as directed [facility] Immunizations Ordered Immunization Name Filled Immunization Name Date Status Comments Source TDAP 2013-10-17 00:00:00 Completed [facility] TD, NOS 2006-02-14 00:00:00 Completed [facility] Rubella 2002-10-25 00:00:00 Completed [facility] MMR- Measles, Mumps, Rubella Unknown Completed Edel Dickerson d - External Rubella Unknown Completed Edel mckenzie - External Tdap- (Boostrix, Adacel) Unknown Completed Edel Saucedaold - External Vital Signs Vital Name Observation Time Observation Value Comments S ource Systolic blood pressure 2023-09-26 19:55:00 112 mm[Hg] Edel Seybo ld - External Diastolic blood pressure 2023-09-26 19:55:00 60 mm[Hg] Edel Seybo ld - External Heart rate 2023-09-26 19:55:00 88 /min Kelse y Seybold - External Body temperature 2023-09-26 19:55:00 37.5 Liat Edel Seybold - External Body height 2023-09-26 19:55:00 162.6 cm Kristine sagastume Seybold - External Body weight 2023-09-26 19:55:00 103.874 kg Kristine ey Seybold - External BMI 2023-09-26 19:55:00 39.31 kg/m2 Kristine sagastume Seybold - External Oxygen saturation in Arterial blood by Pulse oximetry 2023-09-26 19:55:00 96 /min Edel Seybo ld - External Systolic blood pressure 2023-08-09 20:00:00 112 mm[Hg] Edel Seybo ld - External Diastolic blood pressure 2023-08-09 20:00:00 70 mm[Hg] Edel Seybo ld - External Heart rate 2023-08-09 20:00:00 94 /min Kelse y Seybold - External Body temperature 2023-08-09 20:00:00 36.83 Liat Edel Wang - External Respiratory rate 2023-08-09 20:00:00 18 /min Edel Wang - External Body height 2023-08-09 20:00:00 162.6 cm Kristine Wang - External Body weight 2023-08-09 20:00:00 104.781 kg Kristine sagastume Seybold - External BMI 2023-08-09 20:00:00 39.65 kg/m2 Kristine Wang - External Oxygen saturation in Arterial blood by Pulse oximetry 2023-08-09 20:00:00 96 /min Edel Worley ld - External Systolic blood pressure 2022-10-10 06:32:00 111 mm[Hg] [facility] Diastolic blood pressure 2022-10-10 06:32:00 60 mm[Hg] [facility] Heart rate 2022-10-10 06:32:00 110 /min [facility] Respiratory rate 2022-10-10 06:32:00 18 /min [facility] Oxygen saturation in Arterial blood by Pulse oximetry 2022-10-10 06:32:00 96 /min [facility] Body temperature 2022-10-10 06:10:00 37.61 Liat [facility] Body height 2022-10-10 04:11:00 162.6 cm [facility] Body weight 2022-10-10 04:11:00 99.791 kg [facility] BMI 2022-10-10 04:11:00 37.76 kg/m2 [facility] Procedures Procedure Date / Time Performed Performing Clinicia n Source CT ABDOMEN PELVIS W CONTRAST 2022-10-10 05:25:12 Aimee Wells [facility] COVID-19 (ID NOW RAPID TESTING) 2022-10-10 05:09:00 Aimee Wells [facility] NOTICE OF PRIVACY PRACTICES 2022-10-10 04:37:50 Doctor Unassigned, [place] [facility] CONSENT/REFUSAL FOR DIAGNOSIS AND TREATMENT 2022-10-10 04:37:27 Doctor Unassigned, [place] [facility] AMYLASE 2022-10-10 04:26:00 Aimee Wells [facility] LIPASE 2022-10-10 04:26:00 Aimee Wells [facility] COMP. METABOLIC PANEL ([id number]) 2022-10-10 04:26:00 Aimee Wells [facility] CBC WITH DIFF 2022-10-10 04:26:00 [facility]imee Wells [facility] 2022-10-10 04:26:00 Aimee Wells [facility] Encounters Start Date/Time End Date/Time Encounter Type Admission Type Attending [facility] Facility Care Department Encounter ID Source 2023-12-15 00:00:00 2023-12-15 00:00:00 Outpatient CLARKE ROBLES [id number] [facility] 2023-12-14 08:15:00 2023-12-14 08:15:00 Outpatient EDEL WARD [id number] Edel [facility] 2023-11-18 00:00:00 2023-11-18 00:00:00 [facility] [id number] [facility] 2023-11-17 00:00:00 2023-11-17 00:00:00 Outpatient CLARKE ROBLES [id number] Edel [facility] 2023-11-16 08:30:00 2023-11-16 08:30:00 Outpatient LAB90 EDEL WARD [id number] Edel [facility] 2023-11-02 00:00:00 2023-11-02 00:00:00 Outpatient CLARKE ROBLES [id number] Edel [facility] 2023-10-07 00:00:00 2023-10-07 00:00:00 Outpatient EDEL WARD [id number] Edel [facility] 2023-09-28 00:00:00 2023-09-28 00:00:00 Outpatient EDEL WARD [id number] [facility] 2023-09-26 15:00:00 2023-09-26 15:00:00 Outpatient PREZASCLARKEMANNY WARD [id number] Edel [facility] 2023-09-21 08:30:00 2023-09-21 08:30:00 Outpatient RAOJARAD EDEL WARD [id number] [facility] 2023-09-21 00:00:00 2023-09-21 00:00:00 Outpatient MD EDEL PHELAN [id number] [facility] 2023-08-31 16:00:00 2023-08-31 16:00:[address], TECH EDEL WARD [id number] Edel [facility] 2023-08-23 15:00:00 2023-08-23 15:00:[address], TECH EDEL WARD [id number] [facility] 2023-08-23 00:00:00 2023-08-23 00:00:00 Outpatient MD EDEL PHELAN [id number] [facility] 2023-08-16 00:00:00 2023-08-16 00:00:00 Outpatient PREZASCLARKE EDEL WARD [id number] [facility] 2023-08-12 00:00:00 2023-08-12 00:00:00 Outpatient PREZAS, CLARKE EDEL WARD [id number] [facility] 2023-08-11 00:00:00 2023-08-11 00:00:00 Outpatient PREZASCLARKE EDEL WARD [id number] [facility] 2023-08-10 08:55:00 2023-08-10 08:55:00 Outpatient LAB90 EDEL WARD [id number] [facility] 2023-08-09 15:15:00 2023-08-09 15:15:00 Outpatient PREZAS, CLARKE EDEL WARD [id number] [facility] 2023-06-20 14:30:00 2023-06-20 14:30:00 Outpatient PREZAS, CLARKENOVA WARD [id number] [facility] 2023-02-21 13:35:54 2023-02-21 13:35:54 Outpatient [facility] [id number] Jose R Quintero 2023-02-18 16:11:33 2023-02-18 16:11:33 Outpatient [facility] [id number] Jose R Quintero 2022-10-18 10:35:20 2022-10-18 10:35:20 Outpatient [facility] [id number] Jose R Quintero 2022-10-09 23:15:00 2022-10-10 01:45:00 Emergency Aimee Wells [facility] [id number] [facility] 2022-10-09 23:15:00 2022-10-10 01:45:00 Emergency X AIMEE WELLS [facility] ERT [id number] [facility] 2022-09-27 13:29:48 2022-09-27 13:29:48 Outpatient [facility] [id number] Jose R Quintero 2022-06-29 08:31:14 2022-06-29 08:31:14 Outpatient [facility] [id number] Jose R Quintero 2022-06-24 15:09:27 2022-06-24 15:09:27 Outpatient [facility] [id number] Jose R Quintero 2022-06-23 15:04:15 2022-06-23 15:04:15 Outpatient [facility] [id number] Jose R Quintero 2022-03-24 15:29:17 2022-03-24 15:29:17 Outpatient [facility] [id number] Jose R Quintero Results Test Description Test Time Test Comments Results Result Co mments Source IRON BINDING CAPACITY AND IRON AND % [id number] 05:23:53* Test Item Value Reference Range Interpretation Comme nts IRON, SERUM (test code = 2222) 33 UG/DL 37-145 L UNSATURATED IBC (test code = 07184) 234 UG/DL 112-347 CALC TOTAL IBC (test code = 2077) 267 UG/DL 250-450 CALC % IRON SAT (test code = 2079) 12 % 20-50 L TSH, THIRD [id number] 04:32:11* Test Item Value Reference Range Interpretation Comme nts TSH, THIRD GENERATION (test code = 2821) 2.770 UIU/ML 0.400-4.100 UNLESS OTHERWISE INDICATED, ALL TESTING PERFORMED AT [facility] [address] [place] [id number] SUBSTATION OPERATOR HELPER GENERATION: JAMES HARRY M.D. [place] NUMBER [id number] [facility] [place]. [id number] HEMOGLOBIN [id number] 03:42:19* Test Item Value Reference Range Interpretation Comme nts HEMOGLOBIN A1c (test code = 89920) 6.9 % 4.2-5.6 H [employer] GUIDELINES FOR HGB A1C: [...] OR LABORATORY CONSULTATION. CBC W/AUTO DIFF WITH [id number] 03:31:23* Test Item Value Reference Range Interpretation [...] = 1065) 0.0 /100 WBC'S See_Comment [Automated [employer]a ge] The system which generated this result [...] 0.00-0.10 ABS NUCLEATED RBCS (test code = 71251) 0.00 K/UL 0.00-0.11 COMPREHENSIVE METABOLIC [id number] 02:16:54* Test Item Value Reference Range Interpretation Comme nts GLUCOSE (test code = 2217) 127 MG/DL 70-99 H BUN (test code = 2207) 10 MG/DL 6-20 CREATININE (test code = 2214) 0.45 MG/DL 0.60-1.30 L eGFR (2020 CKD-EPI) (test code = 05535) 119 ML/MIN/1.73 >60 CALC BUN/CREAT (test code = 2235) 22 RATIO 6-28 SODIUM (test code = 2231) 136 MEQ/L 133-146 POTASSIUM (test code = 2228) 4.0 MEQ/L 3.5-5.4 CHLORIDE (test code = 2215) 103 MEQ/L 95-107 CARBON DIOXIDE (test code = 2206) 26 MEQ/L 19-31 CALCIUM (test code = 2209) 9.1 MG/DL 8.5-10.5 PROTEIN, TOTAL (test code = 2228) 8.1 G/DL 6.1-8.3 ALBUMIN (test code = 220) 3.9 G/DL 3.5-5.2 CALC GLOBULIN (test code [...] = 2219) 47 U/L 5-40 H LIPID [id number] 02:16:54* Test Item Value Reference Range Interpretation [...] SPECIMENS. FOR MOREINFORMATION, SEE CLIENT ANNOUNCEMENT AT [email or web address] RISK RATIO LDL/HDL (test code = 2238) 1.40 RATIO <3.22
--- NOTE | 2024-02-12 19:38 | RAD REPORT ---
Transvaginal Study Probe CLINICAL INDICATION: Female 48 years old VAGINAL BLEEDING TECHNIQUE: Real-time ultrasonography of the pelvis was performed transvaginally. Color and spectral D oppler evaluation of the ovaries was performed. [id number]. COMPARISON: No prior exam. FINDINGS: UTERUS AND CERVIX: The uterus measures 11.7 x 5.9 x 6.9 cm (cervix to fundus x AP x transverse). 2 fi broids noted, the largest measuring 2.9 cm. The endometrium is normal,1.3 cm in thickness. RIGHT OVARY: Right ovarian cyst measuring 3.1 x 2.8 cm. The right ovary measures 4.2 x 3.1 x 3.6 cm. Normal color and spectral Doppler evaluation of the right ovary.. LEFT OVARY: Normal The left ovary measures 2.9 x 1.6 x 2.1 cm. Normal Color and spectral Doppler ev aluation of the left ovary.. FREE FLUID: No free fluid. IMPRESSION: 1. Endometrial thickness is measured at 13 mm which is within normal limits for a premenopausal patie nt. 2. Simple right ovarian cyst measuring 3.1 cm. Follow-up ultrasound in -12 which is recommended to e nsure resolution. 3. Bilateral ovarian blood flow. 4. Uterine fibroids.
[2024-02-12] MEDS ORDERED: FLUORESCEIN SODIUM 1 MG/WRAP ONE (19:41)
[2024-02-12] MEDS ORDERED: TETRACAINE HCL 0.5% 4ML OPTH ONE (19:41)
[2024-02-12 19:52] LABS: Absolute Eosinophils 0.3 K/uL (0-0.5); Absolute Lymphocytes (CBC) 2.3 K/uL (0.7-4.9); Absolute Monocytes 0.7 K/uL (0.1-1.3); Basophils % 0.6 % (0-1.3); Eosinophils % 3.7 % (0-4.4); Hemoglobin 12.1 g/dL (12.0-15.0); Lymphocytes % 27.7 % (15.3-44.8); MCH 28.3 pg (27.0-35.0); MCHC 32.7 g/dL (32.0-36.0); MCV 86.7 fL (80-100); MPV 6.7 fL (7.6-11.3); Monocytes % 7.8 % (3.3-12.3); Neutrophils % 60.2 % (41.7-73.7); Nucleated Red Blood Cells % 0.1 % (0-0); Platelets 338 thou/uL (152-406); RBC Red Blood Cell Count 4.27 M/uL (3.86-4.86); Red Cell Distribution Width 16.7 % (12.1-15.2)
[2024-02-12 19:57] LABS: Specific Gravity 1.006 (1.005-1.030)
[2024-02-12 19:58] LABS: Specific Gravity 1.008 (1.005-1.030); Sqamous Epithelial None Seen /HPF (None Seen); Urine Bacteria <20 /HPF (<20); Urine Bilirubin NEGATIVE (Negative); Urine Blood 3+ (OVER) (Negative); Urine Clarity Extremely Turbid (Clear); Urine Color Dark-Brown (Yellow); Urine Culture Reflex Order REFLEXED; Urine Glucose NEGATIVE (Negative); Urine Ketones NEGATIVE (Negative); Urine Microscopic Reflex YN ORDER UMIC; Urine Nitrite NEGATIVE (Negative); Urine Protein 1+ (Negative); Urine RBC >50 /HPF (None Seen); Urine Urobilinogen Normal (Normal); Urine WBC >50 /HPF (<5); Urine Yeast (Budding) Few /HPF (None Seen); Urine pH 7.5 (5.0-7.0)
[2024-02-12 20:21] LABS: Anion Gap 6.8 mEq/L (5.0-15.0); Potassium 3.8 mEq/L (3.5-5.1)
--- NOTE | 2024-02-12 21:18 | ER ---
Nurse's Notes [facility] Name: Olena Ross Age: 48 yrs Sex: Female : 1975 Arrival Date: 02/12/2024 Time: 18:17 Bed 19 Private MD: Diagnosis: Abnormal uterine and vaginal bleeding, unspecified;Leiomyoma of uterus, unspecified;Unspecified conjunctivitis Presentation: 02/11 18:23 Chief complaint: Patient states: redness to left eye since the , watering and pain. tm6 Period started on 02/07, heavy bleeding. No period in 11 months, was told she was going through menopause. Coronavirus screen: Client denies travel out of the [place] in the last 14 days. Ebola Screen: Patient negative for fever greater than or equal to 101.5 degrees Fahrenheit, and additional compatible Ebola Virus Disease symptoms Patient denies exposure to infectious person. Patient denies travel to an Ebola-affected area in the 21 days before illness onset. No symptoms or risks identified at this time. Mechanism of Injury: No Mechanism of Injury. Initial Sepsis Screen: Does the patient meet any 2 criteria? No. Patient's initial sepsis screen is negative. Does the patient have a suspected source of infection? No. Patient's initial sepsis screen is negative. Risk Assessment: Do you want to hurt yourself or someone else? Patient reports no desire to harm self or others. Onset of symptoms was February 07, 2024. 18:23 Method Of Arrival: Ambulatory tm6 18:23 Acuity: GERSON 3 tm6 21:33 The patient denies any loss of vision. br2 Triage Assessment: 18:25 General: Appears uncomfortable, Behavior is calm, cooperative. Pain: Complains of pain tm6 in left eye and pelvis. EENT: Eyes are tearing on left eye Reports pain in left eye. Neuro: Level of Consciousness is awake, alert, obeys commands, Oriented to person, place, time, situation. Cardiovascular: Patient's skin is warm and dry. Respiratory: Airway is patent Respiratory effort is even, unlabored, Respiratory pattern is regular, symmetrical. GI: No signs and/or symptoms were reported involving the gastrointestinal system. Abdomen is round non-distended. : Reports pain in suprapubic area vaginal bleeding that is heavy flow. Derm: No signs and/or symptoms reported regarding the dermatologic system. Musculoskeletal: No signs and/or symptoms reported regarding the musculoskeletal system. 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 - Infectious Disease History:: Denies. - Social history:: Smoking status: Patient denies any tobacco usage or history of. Screenin:27 [facility] ED Fall Risk Assessment (Adult) History of falling in the last 3 months, br2 including since admission No falls in past 3 months (0 pts) Confusion or Disorientation No (0 pts) Intoxicated or Sedated No (0 pts) Impaired Gait No (0 pts) Mobility Assist Device Used No (0 pt) Altered Elimination No (0 pt) Score/Fall Risk Level 0 - 2 = Low Risk Oriented to surroundings. Abuse screen: Denies threats or abuse. Denies injuries from another. Nutritional screening: No deficits noted. Tuberculosis screening: No symptoms or risk factors identified. Assessment: 19:27 Reassessment: Patient and/or family updated on plan of care and expected duration. Pain br2 level reassessed. Patient is alert, oriented x 3, equal unlabored respirations, skin warm/dry/pink. General: Appears uncomfortable, Behavior is calm, cooperative. Pain: Complains of pain in left eye Pain does not radiate. Pain currently is 9 out of 10 on a pain scale. Neuro: Level of Consciousness is awake, alert, obeys commands, Oriented to person, place, time, situation. : Reports vaginal bleeding that is heavy flow HASN'T HAD A MENSTRUAL CYCLE IN 11 MONTHS....EXCESSIVE BLEEDING CAUSING HER TO FEEL LIGHTHEADED. EENT: Sclera/Cornea are reddened in outer aspect of conjuctiva of left eye and inner aspect of conjunctiva of left eye. 21:21 Reassessment: Patient and/or family updated on plan of care and expected duration. Pain br2 level reassessed. Patient is alert, oriented x 3, equal unlabored respirations, skin warm/dry/pink. Patient states feeling better. Vital Signs: 18:23 BP 128 / 83; Pulse 92; Resp 17; Temp 98.4; Pulse Ox 99% on R/A; MAP 97 mmHg; Weight tm6 99.79 kg; Height 5 ft. 4 in. ; Pain 8/10; 21:21 BP 128 / 80; Pulse 79; Resp 18 S; Pulse Ox 100% on R/A; br2 18:23 Body Mass Index 37.76 (99.79 kg, 162.56 cm) tm6 18:23 Pain Scale: Adult tm6 Visual Acuity: 19:27 Left Eye Normal, React To Light, Reactive To Accomodation; Without Lenses; br2 ED Course: 18:19 Patient arrived in ED. im 18:20 [facility] Moctezuma [facility] kb 18:20 Jarrett Givens MD is Attending Physician. kb 18:25 Triage completed. tm6 18:25 Arm band placed on right wrist. tm6 19:21 US Transvaginal Study (Probe) In Process Unspecified. EDMS 19:21 Julianna Vick, KARLIE is Primary Nurse. br2 19:25 Inserted saline lock: 20 gauge in right antecubital area, using aseptic technique. af3 Blood collected. Flushed with 10 mL NS. 19:27 Patient has correct armband on for positive identification. Placed in gown. Bed in low br2 position. Call light in reach. Side rails up X 1. Provided Education on: PLAN OF CARE. 21:32 Assist provider with eye exam of left eye. using fluorescein stain, Performed by br2 Dina LOCKWOOD Patient tolerated well. IV discontinued, intact, bleeding controlled, No redness/swelling at site. Pressure dressing applied. Administered Medications: 19:44 Drug: Tetracaine Ophthalmic Drops 0.5 % 1 drops Ophthalmic once Route: Ophthalmic; br2 Site: left eye; 21:32 Follow up: Response: No adverse reaction br2 21:31 Drug: Ibuprofen PO 800 mg PO once Route: PO; br2 21:32 Follow up: Response: Medication administered at discharge. br2 Medication: 19:27 VIS not applicable for this client. br2 Outcome: 21:18 Discharge ordered by . kb 21:32 Discharged to home ambulatory, br2 21:32 Condition: good 21:32 Discharge instructions given to patient, Instructed on discharge instructions, follow up and referral plans. medication usage, Demonstrated understanding of instructions, follow-up care, medications, Prescriptions given X 1, 21:33 Patient left the ED. br2 Signatures: Dispatcher [employer] EDDina Espinosa, FABIÁN LLANES-Francine Chi Tawney RN RN tm6 Julianna Vick RN RN br2 Teressa Villafuerte
--- NOTE | 2024-02-12 21:18 | EDPHYS ---
Physician Documentation [facility] Name: Olena Ross Age: 48 yrs Sex: Female : 1975 Arrival Date: 02/12/2024 Time: 18:17 Bed 19 Private MD: ED Physician Jarrett Givens HPI: 02/11 18:26 This 48 yrs old Female presents to ER via Ambulatory with complaints of Eye kb Pain, Vaginal Bleeding. 18:26 Pt is a 48 year old female who presents for left eye pain, redness and watering that kb started 5 days ago. Also reports vaginal bleeding that started 4 days ago and has been heavy. States she was told she was going through menopause and hasn't had a period in 11 months prior to this one starting. . 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 - Infectious Disease History:: Denies. - Social history:: Smoking status: Patient denies any tobacco usage or history of. ROS: 18:26 Constitutional: As per HPI kb Exam: 18:26 Constitutional: This is a well developed, well nourished patient who is awake, alert, kb and in no acute distress. Head/Face: Normocephalic, atraumatic. ENT: Moist Mucous membranes Cardiovascular: Regular rate Respiratory: Respirations even and unlabored. No increased work of breathing. Talking in full sentences Abdomen/GI: Soft, non-tender. No distention Skin: Warm, dry with normal turgor. Normal color. MS/ Extremity: Pulses equal, no cyanosis. Neurovascular intact. Full, normal range of motion. Neuro: Awake and alert, GCS 15, oriented to person, place, time, and situation. 18:26 Eyes: Periorbital structures: appear normal, Pupils: equal, round, and reactive to light and accomodation, Extraocular movements: intact throughout, Conjunctiva: injected, in the left eye, 21:17 Eyes: Corneas: are normal, no evidence of abrasion, no foreign body, a fluorescein kb strip employed to appreciate the findings, Vital Signs: 18:23 BP 128 / 83; Pulse 92; Resp 17; Temp 98.4; Pulse Ox 99% on R/A; MAP 97 mmHg; Weight tm6 99.79 kg; Height 5 ft. 4 in. ; Pain 8/10; 21:21 BP 128 / 80; Pulse 79; Resp 18 S; Pulse Ox 100% on R/A; br2 18:23 Body Mass Index 37.76 (99.79 kg, 162.56 cm) tm6 18:23 Pain Scale: Adult tm6 Visual Acuity: 19:27 Left Eye Normal, React To Light, Reactive To Accomodation; Without Lenses; br2 MDM: 18:20 Medical Screening Exam initiated kb 21:17 Differential diagnosis: Corneal abrasion of Corneal ulcer of Foreign body in Data kb reviewed: vital signs, nurses notes. Consideration of Admission/Observation Patient was admitted/placed on observation. Escalation of care including admission/observation considered. Historians other than the Patient: Daughter/Son: daughter. Counseling: I had a detailed discussion with the patient and/or guardian regarding the historical points, exam findings, and any diagnostic results supporting the discharge/admit diagnosis, lab results, radiology results, the need for outpatient follow up, an opthalmologist, an OB/Gyne specialist, to return to the emergency department if symptoms worsen or persist or if there are any questions or concerns that arise at home. 02/11 18:25 Order name: Basic Metabolic Panel; Complete Time: 20:25 kb 02/11 18:25 Order name: CBC with Diff; Complete Time: 19:54 kb 02/11 18:25 Order name: Test, Urine; Complete Time: 20:01 kb 02/11 18:25 Order name: Urinalysis w/ reflexes; Complete Time: 20:25 kb 02/11 20:19 Order name: Urine Culture EDMS 02/11 18:25 Order name: US Transvaginal Study (Probe); Complete Time: 19:38 kb 02/11 18:25 Order name: IV Saline Lock; Complete Time: 19:25 kb 02/11 18:25 Order name: Labs collected and sent; Complete Time: 19:25 kb 02/11 18:25 Order name: NPO kb 02/11 18:25 Order name: Eye Tray; Complete Time: 19:44 kb 02/11 18:25 Order name: Fluoresene Opth strip; Complete Time: 19:44 kb Administered Medications: 19:44 Drug: Tetracaine Ophthalmic Drops 0.5 % 1 drops Ophthalmic once Route: Ophthalmic; br2 Site: left eye; 21:32 Follow up: Response: No adverse reaction br2 21:31 Drug: Ibuprofen PO 800 mg PO once Route: PO; br2 21:32 Follow up: Response: Medication administered at discharge. br2 Disposition: 02/12 07:07 Co-signature as Attending Physician, Jarrett Givens MD I reviewed the patient's care rn provided by the Advanced Practice Provider and agree with the diagnosis and treatment plan. Disposition Summary: 02/12/24 21:18 Discharge Ordered Notes: Location: Home kb Condition: Stable kb Diagnosis - Abnormal uterine and vaginal bleeding, unspecified kb - Leiomyoma of uterus, unspecified kb - Unspecified conjunctivitis kb Followup: kb - With: Emergency Department - When: As needed - Reason: Worsening of condition Followup: kb - With: Private Physician - When: 2 - 3 days - Reason: Recheck today's complaints, Continuance of care, Re-evaluation by your physician Discharge Instructions: - Discharge Summary Sheet kb - Bacterial Conjunctivitis, Adult, [id number] kb - Abnormal Uterine Bleeding, [id number] kb Forms: - Medication Reconciliation Form kb - Antibiotic Education kb - Prescription Opioid Use kb - Patient Portal Instructions kb - Leadership Thank You Letter kb Prescriptions: - Vigamox 0.5 % Ophthalmic Drops - instill 1 drop OPHTHALMIC route every 8 hours for 7 days; 5 milliliter; kb Refills: 0, Product Selection Permitted Signatures: Dispatcher [employer] EDDina Espinosa, JAKUBC OPERATIONS LOGISTICS ANALYST-Jarrett Frost MD MD rn Amrita Potter RN RN tm6 Julianna Vick RN RN br2
[2024-02-12] MEDS ORDERED: IBUPROFEN 400 MG TAB ONE (21:27)
[2024-02-13 00:22] VITALS: TEMP 98.4
[2024-02-13 00:25] VITALS: BP 128/80; O2SAT 100
== END 2024-02-12 21:33 | disposition home or self-care (01) ==
LOC: ER 18:17
DX: D25.9 Leiomyoma of uterus, unspecified (principal); H10.9 Unspecified conjunctivitis
CPT/HCPCS: 36415; 76830; 80048; 81001; 81025; 85025; 87086; 87088; 99284